=== PATIENT | female | born 1950 | race Hispanic/Latino ===

== ENCOUNTER 2018-10-16 08:27 | Emergency (ER) | payer OTHER ==
--- OUTSIDE RECORDS SUMMARY | 2018-10-16 08:29 | XMS REPORT | Continuity of Care Document ---
:1950 Author Organization Interface Problems Problem Status Onset Classification Date Comments Source Date Reported Simple Active Problem 05/21/2018 [facility] obesity Neuro Medications Medication Details Route Status Patient Ordering Order Source Instructions Provider Date Allergies, Adverse Reactions, Alerts Substance Category Reaction Severity Reaction Status Date Comments Source type Reported Immunizations Immunization Date Given Site Status Last Updated Comments Source Results Order Results Value Reference Date Interpretation Comments Source Name Range Vital Signs Vital Sign Value Date Comments Source BMI Calculated 33.36 04/02/2018 [facility] Neuro Weight 82.727 04/02/2018 [facility] Neuro Height 157.48 cm 04/02/2018 [facility] Neuro Heart Rate 80 04/02/2018 [facility] Neuro Systolic (mm Hg) 147 04/02/2018 [facility] Neuro Diastolic (mm Hg) 83 04/02/2018 [facility] Neuro Encounters Location Location Encounter Encounter Reason Attending ADM DC Status Source Details Type Number For Provider Date Date Visit Outpatient [id number] [place] 04/02 [facility] Outpatient [id number] [place] 04/02 04/03 [facility] Neurosurger Shelly /[facility] Phone [id number] 05/17 05/19 [facility] Neurosurger Message /2017 [facility] Phone [id number] 05/17 05/19 [facility] Neurosurger Message /2017 [facility] Outpatient [id number] [place] 06/12 [facility] Procedures Procedure Code Date Perfomer Comments Source
--- OUTSIDE RECORDS SUMMARY | 2018-10-16 08:29 | XMS REPORT ---
:1950 Author Organization eClinicalWorks Care Team Providers Name Role Phone Darrell Logan Provider Role Unavailable Allergies, Adverse Reactions, Alerts Substance Reaction Event Type N.K.D.A. Info Not Available Non Drug Allergy Problems Problem Type Condition Code Onset Dates Condition Status Problem Primary osteoarthritis of right M17.11 Active knee Problem Primary osteoarthritis of left knee M17.12 Active Assessment Primary osteoarthritis of right M17.11 Active knee Assessment Primary osteoarthritis of left knee M17.12 Active Assessment Pain, joint, knee, right M25.561 Active Assessment Pain, joint, knee, left M25.562 Active Medications Medication Code Code Instructions Start End Status Dosage System Date Date Methylprednisolone NDC 0 Oral Active 1 tab Jentadueto 2.5mg [facility] 10782315152 2.5mg Active not defined Nifedipine ER ND 59961826281 30 mg Oral Active not defined Tramadol HCl ND 19558905968 50 MG Orally Active 1 tablet every 6 hrs as needed Farxiga ND 46240453983 5mg By Mouth Active 1 Dailly Levothyroxine Sodium ND 51641099913 50 MCG Orally Active 1 tablet Once a day on an empty stomach in the morning Carvedilol ND 78031343879 25 MG Orally Active as directed Pioglitazone HCl [facility] 41810824273 30 MG Orally Active 1 tablet Once a day Results No Known Results Summary Purpose eClinicalWorks Submission
--- OUTSIDE RECORDS SUMMARY | 2018-10-16 08:29 | XMS REPORT ---
:1950 Author Organization eClinicalWorks Care Team Providers Name Role Phone Darrell Logan Provider Role Unavailable Allergies No Known Allergies Problems Problem Type Condition Code Onset Dates Condition Status Problem Primary osteoarthritis of right knee M17.11 Active Problem Primary osteoarthritis of left knee M17.12 Active Medications No Known Medications Results No Known Results Summary Purpose eClinicalWorks Submission
--- OUTSIDE RECORDS SUMMARY | 2018-10-16 08:29 | XMS REPORT | Summary of Care ---
:1950 Author Organization [facility] Neurosurgery [facility] Address [address] [place], [place] [address]oria [employer], [address] [place] [address]- Encounter HQ Encntr_alias(FIN) [id number] Date(s): 05/17/18 - 05/18/18 [facility] Neurosurgery [address] [facility], [address] [place], [place] [address] [phone] Vital Signs No data available for this section Problem List Condition Effective Dates Status Health Status Informant Simple obesity(Confirmed) Active Allergies, Adverse Reactions, Alerts No data available for this section Medications No data available for this section Results No data available for this section Immunizations No data available for this section Procedures No data available for this section Social History Social History Type Response Smoking Status Unknown if ever smoked; Exposure to Tobacco Smoke Unable to obtain; Cigarette Smoking Last 365 Days Unable to obtain; Reg Smoking Cessation Counseling No entered on: 04/02/18 Assessment and Plan No data available for this section
--- OUTSIDE RECORDS SUMMARY | 2018-10-16 08:29 | XMS REPORT | Summary of Care ---
:1950 Author Organization [facility] Neurosurgery [facility] Address [address] [place], [place] [address] [employer], [address] [place] [address]- Encounter HQ Encntr_alias(FIN) [id number] Date(s): 05/17/18 - 05/18/18 [facility] Neurosurgery [address] [facility], [address] [place], [place] [address] [phone] Vital Signs No data available for this [...]
--- NOTE | 2018-10-16 11:26 | EDPHYS ---
Physician Documentation [facility] Name: Katelin Curtis Age: 67 yrs Sex: Female : 1950 Arrival Date: 10/16/2018 Time: 08:30 Bed 14 Private MD: Darrell Logan ED Physician Teddy Rivera HPI: 10/16 08:49 This 67 yrs old Female presents to ER via Wheelchair with complaints of Knee rn Pain. 08:49 The patient presents with an injury, pain. The complaints affect the left knee. Onset: rn The symptoms/episode began/occurred yesterday. Modifying factors: The symptoms are alleviated by remaining still, the symptoms are aggravated by movement, weight bearing, bending knee. Severity of symptoms: At their worst the symptoms were moderate, in the emergency department the symptoms are unchanged. The patient has not experienced similar symptoms in the past. Reports walking, fell, hit left knee directly, no other injuries, hard to walk but ambulatory, + swelling and pain with movement. . Historical: - Allergies: 08:48 No Known Allergies; ss - PSHx: 09:02 None; ph - Immunization history:: Adult Immunizations up to date. - Social history:: Smoking status: Patient/guardian denies using tobacco. - Ebola Screening: : Patient denies exposure to infectious person Patient denies travel to an Ebola-affected area in the 21 days before illness onset. - Family history:: not pertinent. - Hospitalizations: : No recent hospitalization is reported. ROS: 08:49 Constitutional: Negative for fever, chills, and weight loss, Neck: Negative for injury, rn pain, and swelling, Cardiovascular: Negative for chest pain, palpitations, and edema, Respiratory: Negative for shortness of breath, cough, wheezing, and pleuritic chest pain, Abdomen/GI: Negative for abdominal pain, nausea, vomiting, diarrhea, and constipation, Back: Negative for injury and pain, MS/Extremity: + left knee injury and swelling Skin: Negative for injury, rash, and discoloration, Neuro: Negative for headache, weakness, numbness, tingling, and seizure. Exam: 08:49 Constitutional: This is a well developed, well nourished patient who is awake, alert, rn and in no acute distress. MS/ Extremity: Pulses equal, no cyanosis. Neurovascular intact. + swelling of left knee with painful ROM, + intact extensor mechanism, no open wound Neuro: Awake and alert, GCS 15, oriented to person, place, time, and situation. Cranial nerves II-XII grossly intact. Motor strength 5/5 in all extremities. Sensory grossly intact. Vital Signs: 08:48 BP 164 / 90; Pulse 94; Resp 16; Temp 97.7(TE); Pulse Ox 97% on R/A; Weight 86.18 kg; ss Height 5 ft. 2 in. (157.48 cm); Pain 10/10; 12:22 BP 154 / 82; Pulse 87; Resp 18; Temp 98.0; Pulse Ox 99% on R/A; ph 08:48 Body Mass Index 34.75 (86.18 kg, 157.48 cm) ss MDM: 08:45 Patient medically screened. rn 11:24 Differential diagnosis: closed fracture, contusion. Data reviewed: vital signs, nurses rn notes, radiologic studies, and as a result, I will discharge patient. Counseling: I had a detailed discussion with the patient and/or guardian regarding: the historical points, exam findings, and any diagnostic results supporting the discharge/admit diagnosis, radiology results, the need for outpatient follow up, to return to the emergency department if symptoms worsen or persist or if there are any questions or concerns that arise at home. Special discussion: I discussed with the patient/guardian in detail that at this point there is no indication for admission to the hospital. It is understood, however, that if the symptoms persist or worsen the patient needs to return immediately for re-evaluation. 10/16 08:48 Order name: XRAY Knee LEFT 3 view rn 10/16 12:21 Order name: RAD EDAR 10/16 11:24 Order name: Knee Immobilizer; Complete Time: 12:21 rn Administered Medications: No medications were administered Disposition: 10/16/18 11:25 Discharged to Home. Impression: Contusion of left knee. - Condition is Stable. - Discharge Instructions: Contusion, Knee Pain. - Prescriptions for Tylenol- Codeine #3 300-30 mg Oral Tablet - take 1 tablet by ORAL route every 6 hours As needed; 15 tablet. - Medication Reconciliation Form, Thank You Letter, Antibiotic Education, Prescription Opioid Use form. - Follow up: Darrell Logan MD; When: As needed; Reason: Recheck today's complaints, Re-evaluation by your physician. - Problem is new. - Symptoms have improved. Signatures: Dispatcher [employer] EDMS Teddy Rivera MD MD rn [facility] ServicesFatmata lui RN RN Salena Lawrence RN RN ph Corrections: (The following items were deleted from the chart) 12:22 11:25 10/16/2018 11:25 Discharged to Home. Impression: Contusion of left knee. ph Condition is Stable. Forms are Medication Reconciliation Form, Thank You Letter, Antibiotic Education, Prescription Opioid Use. Follow up: Dr. Darrell Logan; When: As needed; Reason: Recheck today's complaints, Re-evaluation by your physician. Problem is new. Symptoms have improved. rn
--- NOTE | 2018-10-16 11:26 | ER ---
Nurse's Notes [facility] Name: Katelin Curtis Age: 67 yrs Sex: Female : 1950 Arrival Date: 10/16/2018 Time: 08:30 Bed 14 Private MD: Darrell Logan Diagnosis: Contusion of left knee Presentation: 10/16 08:47 Presenting complaint: Patient states: L knee pain that began after falling from a ss standing position yesterday. Transition of care: patient was not received from another setting of care. Onset of symptoms was October 15, 2018. Risk Assessment: Do you want to hurt yourself or someone else? Patient reports no desire to harm self or others. Initial Sepsis Screen: Does the patient meet any 2 criteria? No. Patient's initial sepsis screen is negative. Does the patient have a suspected source of infection? No. Patient's initial sepsis screen is negative. Care prior to arrival: None. 08:47 Method Of Arrival: Wheelchair ss 08:47 Acuity: [place] 4 ss Historical: - Allergies: 08:48 No Known Allergies; ss - PSHx: 09:02 None; ph - Immunization history:: Adult Immunizations up to date. - Social history:: Smoking status: Patient/guardian denies using tobacco. - Ebola Screening: : Patient denies exposure to infectious person Patient denies travel to an Ebola-affected area in the 21 days before illness onset. - Family history:: not pertinent. - Hospitalizations: : No recent hospitalization is reported. Screenin:01 Abuse screen: Denies threats or abuse. Denies injuries from another. Nutritional ph screening: No deficits noted. Tuberculosis screening: No symptoms or risk factors identified. Fall Risk Fall in past 12 months (25 points). No secondary diagnosis (0 pts). No IV (0 pts). Ambulatory Aid- None/Bed Rest/Nurse Assist (0 pts). Gait- Normal/Bed Rest/Wheelchair (0 pts) Mental Status- Oriented to own ability (0 pts). Total Hinds Fall Scale indicates Low Risk Score (25-44 pts). Fall prevention measures have been instituted. Side Rails Up X 2 Family Present and informed to notify staff if they need to leave bedside As available Patient and Family Educated on Fall Prevention Program and strategies. Assessment: 09:00 General: Appears in no apparent distress. comfortable, obese, well groomed, Behavior is ph calm, cooperative, appropriate for age. Pain: Complains of pain in left knee. Neuro: Level of Consciousness is awake, alert, obeys commands, Oriented to person, place, time, situation. Cardiovascular: Capillary refill < 3 seconds in bilateral fingers Patient's skin is warm and dry. Respiratory: Airway is patent Respiratory effort is even, unlabored, Respiratory pattern is regular, symmetrical. GI: No signs and/or symptoms were reported involving the gastrointestinal system. Derm: Skin is intact, is healthy with good turgor, Skin is pink, warm \T\ dry. 09:22 Reassessment: Patient appears in no apparent distress at this time. Patient and/or ph family updated on plan of care and expected duration. Pain level reassessed. Patient is alert, oriented x 3, equal unlabored respirations, skin warm/dry/pink. Radiology at bedside for xray of knee. 10:28 Reassessment: Patient appears in no apparent distress at this time. Patient and/or ph family updated on plan of care and expected duration. Pain level reassessed. Patient is alert, oriented x 3, equal unlabored respirations, skin warm/dry/pink. Pt resting quietly, awaiting xray results, SO at bedside. Vital Signs: 08:48 BP 164 / 90; Pulse 94; Resp 16; Temp 97.7(TE); Pulse Ox 97% on R/A; Weight 86.18 kg; Height 5 ft. 2 in. (157.48 cm); Pain 10/10; 12:22 BP 154 / 82; Pulse 87; Resp 18; Temp 98.0; Pulse Ox 99% on R/A; ph 08:48 Body Mass Index 34.75 (86.18 kg, 157.48 cm) ED Course: 08:30 Patient arrived in ED. sb2 08:31 Darrell Logan MD is Private Physician. sb2 08:43 Salena Lawrence, CHRISTEN is Primary Nurse. ph 08:45 Teddy Rivera MD is Attending Physician. rn 08:47 Triage completed. ss 08:48 Arm band placed on right wrist. ss 09:01 Patient has correct armband on for positive identification. Bed in low position. Call ph light in reach. Side rails up X 1. Pulse ox on. NIBP on. 11:25 Darrell Logan MD is Referral Physician. rn 12:21 No provider procedures requiring assistance completed. Patient did not have IV access ph during this emergency room visit. Knee immobilizer applied on left knee. Administered Medications: No medications were administered Outcome: Discharge ordered by . rn 12: Discharged to home ambulatory, with family. ph 12: Condition: good 12: Discharge instructions given to patient, Instructed on discharge instructions, follow up and referral plans. Demonstrated understanding of instructions, follow-up care. 12:22 Patient left the ED. ph Signatures: Teddy Rivera MD MD rn Smirch, Shelby, RN RN Salena Zamora RN RN ph Lucrecia Ortega
--- NOTE | 2018-10-16 12:20 | RAD REPORT ---
EXAM DESCRIPTION: RAD - Knee Left 3 View - 10/16/2018 9:38 am CLINICAL HISTORY: Left knee pain status post fall FINDINGS: No fracture or dislocation is seen. The bones are osteoporotic. Marked osteoarthritis involves the medial compartment. If the patient continues have symptoms to suggest an occult fracture, ligamentous or meniscal injury MR would be recommended
== END 2018-10-16 12:22 | disposition home or self-care (01) ==
LOC: ER 08:27
DX: S80.02XA Contusion of left knee, initial encounter (principal); W19.XXXA Unspecified fall, initial encounter; M17.12 Unilateral primary osteoarthritis, left knee; M81.0 Age-related osteoporosis without current pathological fracture
CPT/HCPCS: 99283

== ENCOUNTER 2018-12-11 06:13 | Inpatient (IN) | payer OTHER ==
--- NOTE | 2018-12-05 10:33 | RAD REPORT ---
EXAM DESCRIPTION: RAD - Chest Pa And Lat (2 Views) - 12/05/2018 10:21 am CLINICAL HISTORY: preop Chest pain. COMPARISON: No comparisons FINDINGS: The lungs are clear. The heart is moderately enlarged. No displaced fractures. IMPRESSION: Moderate cardiomegaly.
[2018-12-05 11:06] LABS: Absolute Lymphocytes (CBC) 2.4 K/uL (0.7-4.9); Absolute Monocytes 0.6 K/uL (0.1-1.3); Absolute Neutrophil 6.3 K/uL (1.8-8.0); Basophils % 0.8 % (0-1.3); Eosinophils % 1.9 % (0-4.4); Hematocrit 36.2 % (36.0-45.0); Lymphocytes % 24.7 % (15.3-44.8); MPV 9.4 fL (7.6-11.3); Monocytes % 6.6 % (3.3-12.3); RBC Red Blood Cell Count 4.08 M/uL (3.86-4.86)
[2018-12-05 11:10] LABS: Protime INR 0.87
[2018-12-05 11:12] LABS: Potassium 4.2 mmol/L (3.5-5.1)
--- OUTSIDE RECORDS SUMMARY | 2018-12-11 06:21 | XMS REPORT ---
[...] 0 Oral Active 1 tab Jentadueto 2.5mg [facility] 81223776762 2.5mg Active not defined Nifedipine ER ND 27570321436 30 mg Oral Active not defined Tramadol HCl ND 05154929207 50 MG Orally Active 1 tablet every 6 hrs as needed Farxiga ND 11631938764 5mg By Mouth Active 1 Dailly Levothyroxine Sodium ND 08517183716 50 MCG Orally Active 1 tablet Once a day on an empty stomach in the morning Carvedilol ND 11265560971 25 MG Orally Active as directed Pioglitazone HCl [facility] 09737195959 30 MG Orally Active 1 tablet Once a day Results No Known Results Summary Purpose eClinicalWorks Submission
--- OUTSIDE RECORDS SUMMARY | 2018-12-11 06:21 | XMS REPORT ---
:1950 Author Organization eClinicalWorks Care Team Providers Name Role Phone Darrell Logan Provider Role Unavailable Allergies, Adverse Reactions, Alerts Substance Reaction Event Type N.K.D.A. Info Not Available Non Drug Allergy Problems Problem Type Condition Code Onset Dates Condition Status Assessment Contusion of left knee, initial S80.02XA Active encounter Problem Primary osteoarthritis of right M17.11 Active knee Problem Primary osteoarthritis of left M17.12 Active knee Assessment Primary osteoarthritis of right M17.11 Active knee Assessment Primary osteoarthritis of left M17.12 Active knee Assessment Pain, joint, knee, right M25.561 Active Assessment Pain, joint, knee, left M25.562 Active Medications Medication Code Code Instructions Start End Status Dosage System Date Date Pioglitazone HCl [facility] 99853889190 30 MG Orally Active 1 tablet Once a day Pravastatin ND 23503219882 10 MG Orally Active 1 tablet Sodium Once a day Jentadueto 2.5mg ND 00229395275 2.5mg Active not defined Tramadol HCl ND 52207467060 50 MG Orally Active 1 tablet as every 6 hrs needed Nifedipine ER ND 70471874849 30 mg Oral Active not defined Levothyroxine ND 24612548880 50 MCG Orally Active 1 tablet on Sodium Once a day an empty stomach in the morning Carvedilol ND 84793349193 25 MG Orally Active as directed Results Name Result Date Reference Range Unit Abnormality Flag MRI : Knee, right Summary Purpose eClinicalWorks Submission
--- OUTSIDE RECORDS SUMMARY | 2018-12-11 06:21 | XMS REPORT | Continuity of Care Document ---
:1950 Author Organization Interface Problems Problem Status Onset Classification Date Comments Source Date Reported Simple Active Problem 05/21/2018 [facility] Medications Medication Details Route Status Patient Ordering Order Source Instructions Provider Date Allergies, Adverse Reactions, Alerts Substance Category Reaction Severity Reaction Status Date Comments Source type Reported Immunizations Immunization Date Given Site Status Last Updated Comments Source Results Order Results Value Reference Date Interpretation Comments Source Name Range Vital Signs Vital Sign Value Date Comments Source BMI Calculated 33.36 04/02/2018 [facility] Weight 82.727 04/02/2018 [facility] Height 157.48 cm 04/02/2018 [facility] Heart Rate 80 04/02/2018 [facility] Systolic (mm Hg) 147 04/02/2018 [facility] Diastolic (mm Hg) 83 04/02/2018 [facility] Encounters Location Location Encounter Encounter Reason Attending ADM DC Status Source Details Type Number For Provider Date Date Visit Outpatient [id number] [place] 04/02 [facility] Out[facility] [id number] [place] 04/02 04/03 [facility] Neuro[facility] Shelly [facility] Phone [id number] 05/17 05/19 [facility] Neuro[facility] Message /2017 [facility] Phone [id number] 05/17 05/19 [facility] Message /2017 [facility] [id number] [place] 06/12 [facility] Procedures Procedure Code Date Perfomer Comments Source
[2018-12-11] MEDS ORDERED: NA CHLORIDE 0.9% 1,000 ML ONE ×2 (06:46→07:17)
[2018-12-11] MEDS ORDERED: LIDOCAINE 1% MPF 5 ML VIAL ONE (06:46)
[2018-12-11] MEDS ORDERED: CEFAZOLIN 2GM (PREMIX IV) 2 GM/50 ML BAG ONE (06:46)
[2018-12-11] MEDS ORDERED: LIDOCAINE 2% MPF 5 ML VIAL ONE (07:09)
[2018-12-11] MEDS ORDERED: FENTANYL CITR 250 MCG/5 ML ONE (07:09)
[2018-12-11] MEDS ORDERED: PROPOFOL 200 MG/20 ML VIAL IV ONE (07:09)
[2018-12-11] MEDS ORDERED: MIDAZOLAM HCL 2 MG/2 ML INJ ONE (07:09)
[2018-12-11] MEDS ORDERED: TRANEXAMIC ACID 1,000 MG in NA CHLORIDE 0.9% 50 ML IV SCH (07:15)
[2018-12-11] MEDS ORDERED: BUPIVACA 0.25%/EPI 0.0005% MDV 50 ML VIAL ONE (07:16)
[2018-12-11] MEDS ORDERED: DEXAMETHASONE 4 MG/ML VIAL ONE (07:19)
[2018-12-11] MEDS ORDERED: ROPLVACAINE HCL 20 ML ONE (07:19)
[2018-12-11] MEDS ORDERED: Phenylephrine HCl 10 MG/ML 1 ML VIAL ONE (08:00)
[2018-12-11] MEDS ORDERED: KETOROLAC 30 MG/ML INJ ONE (10:01)
[2018-12-11] MEDS ORDERED: DOCUSATE NA 100 MG CAP PO PRN (10:33)
[2018-12-11] MEDS ORDERED: ONDANSETRON 4 MG/2 ML VIAL IV PRN (10:33)
--- NOTE | 2018-12-11 10:33 | P.BOP ---
Preoperative diagnosis: right knee osteoarthritis Postoperative diagnosis: same Primary procedure: right total knee arthroplasty Casing Sewer: NONE,NONE Estimated blood loss: 20 cc Specimen: right knee bone remnants Findings: see dictation Anesthesia: General Complications: None Implants: 62.5 Biomet CR femur, 75 tibia, 12 mm CR E-poly, 31 patella Fluids & blood products: per anesthesia; 92 mins @ 300 mmHg Transferred to: Recovery Room Condition: Good
[2018-12-11] MEDS: FENTANYL CITR 100 MCG/2 ML ONE ×4 (11:05→11:23)
[2018-12-11 11:12] LABS: Hematocrit 35.2 % (36.0-45.0)
--- NOTE | 2018-12-11 11:20 | RAD REPORT ---
EXAM DESCRIPTION: RAD - Knee Right 2 View - 12/11/2018 11:05 am CLINICAL HISTORY: Post Op Right TKA COMPARISON: No comparisons FINDINGS: Right total knee arthroplasty is present. Skin sapna are present anteriorly. A small luisito unt of air is present in the joint space. No unexpected postoperative finding. IMPRESSION: Right TKA.
[2018-12-11 12:37] VITALS: BMI 35.1
[2018-12-11 16:12] LABS: Urine Appearance CLEAR; Urine Bilirubin NEGATIVE (NEG); Urine Blood 1+ (NEG); Urine Color YELLOW; Urine Glucose NEGATIVE (NEG); Urine Protein NEGATIVE (NEG); Urine Specific Gravity <=1.005 (1.005-1.030); Urine Urobilinogen 0.2 mg/dL (0.2-1.0)
[2018-12-11 16:19] LABS: Urine Microscopic Reflex ORDER UMIC
[2018-12-11] MEDS: MORPHINE 4 MG/ML SYR IV PRN (16:46)
[2018-12-11] MEDS ORDERED: CEFAZOLIN 2GM (PREMIX IV) 2 GM/50 ML BAG IV SCH (17:00)
[2018-12-11] MEDS: CEFAZOLIN/SWI 2gm 2 GM/20 ML SYR IVP SCH (17:09)
--- NOTE | 2018-12-11 17:38 | P.CNS ---
Date of Consult: 12/11/18 Reason for Consult: HTN and Diabetes Requesting Physician: Darrell Logan Primary Care Provider: Jessica Madrid Chief Complaint: Total Right Knee Surgery History of Present Illness: This is a 68-year-old female with significant past medical history of hypertension diabetes who is being admitted to the hospital for observation post for total right knee replacement secondary to osteoarthritis. Patient currently doing well no complaints to offer to tolerate the procedure well. Medicine team was consulted for medical management of chronic disease. Will follow along with orthopedics. Allergies No Known Drug Allergies Allergy (Verified 12/05/18 10:03) Unknown Home Medications: Carvedilol [Coreg] 25 mg PO BID 12/05/18 Levothyroxine [Synthroid] 50 mcg PO [id number] 12/05/18 Linagliptin/Metformin HCl [Jentadueto 2.5 mg-500 mg Tab] 1 each PO BID 12/05/18 Pioglitazone [Actos] 30 mg PO DAILY 12/05/18 Pravastatin Sodium 20 mg PO BEDTIME 12/05/18 Tramadol HCl [Ultram] 50 mg PO BID 12/05/18 Hydrocodone/Acetaminophen [Hydrocodone-Acetamin 7.5-325] 1 tab PO Q6HR PRN 12/11 Nifedipine Xl [Procardia Xl*] 1 tab PO DAILY 12/11/18 - Past Medical/Surgical History Diabetic: Yes -: Diabetes -: Hypertension -: Hypercholesterolemia -: Hypothyroidism - Family History Mother Medical History: Hypertension, Diabetes Notes: dad-stroke - Social History Alcohol use: No CD- Drugs: No Caffeine use: Yes Place of Residence: Home Review of Systems 10-point ROS is otherwise unremarkable Physical Examination Temp Pulse Resp BP Pulse Ox 97.6 F 85 18 143/65 H 98 12/11/18 11:40 12/11/18 11:40 12/11/18 11:40 12/11/18 11:40 12/11/18 11:40 General: Alert, In no apparent distress HEENT: Atraumatic, PERRLA, Mucous membr. moist/pink, EOMI, Sclerae nonicteric Neck: Supple, 2+ carotid pulse no bruit, No LAD, Without JVD or thyroid abnormality Respiratory: Clear to auscultation bilaterally, Normal air movement Cardiovascular: Regular rate/rhythm, Normal S1 S2 Gastrointestinal: Normal bowel sounds, No tenderness Musculoskeletal: Tenderness (Right Knee Cast in place) Integumentary: No rashes Neurological: Normal speech, Normal tone, Sensation intact, Normal affect Lymphatics: No axilla or inguinal lymphadenopathy Laboratory Data (last 24 hrs) 12/11/18 11:02: Hgb 11.4 L, Hct 35.2 L - Problems (1) Status post right knee replacement Current Visit: Yes Status: Acute Plan: Currently status post right knee total replacement secondary to osteoarthritis -orthopedic is primary on the case -will follow along for medical management (2) HTN (hypertension) Current Visit: Yes Status: Acute Plan: History of essential hypertension. -blood pressure controlled at this time -restarted home Meds Qualifiers: Hypertension type: essential hypertension Qualified Code(s): I10 - Essential (primary) hypertension (3) Diabetes Current Visit: Yes Status: Chronic Plan: Diabetes type 2 -will restart home medication at this time -blood sugar ACHS Qualifiers: Diabetes mellitus type: type 2 Diabetes mellitus [facility] insulin use: without long term care phlebotomist use Diabetes mellitus complication status: without complication Qualified Code(s): E11.9 - Type 2 diabetes mellitus without complications Critical Care: No
[2018-12-11 18:07] LABS: Urine Bacteria <20 /HPF (<20); Urine Culture Reflex Order NOT NEEDED; Urine RBC <5 /HPF (NONE SEEN)
[2018-12-11] MEDS: ATORVASTATIN 10 MG TAB PO SCH (20:29)
[2018-12-11] MEDS: CARVEDILOL 25 MG TAB PO SCH (20:29)
[2018-12-11] MEDS: METFORMIN HCL PO SCH (20:34)
[2018-12-11] MEDS: LINAGLIPTIN PO SCH (20:34)
[2018-12-11] MEDS: HYDROCODONE/APAP 7.5/325 MG TAB PO PRN (23:06)
--- NOTE | 2018-12-11 23:52 | OP ---
Date of Procedure: 12/11/2018 Surgeon: Darrell Logan MD Preoperative Diagnosis: Right knee osteoarthritis. Postoperative Diagnosis: Right knee osteoarthritis. Procedure Performed: Right total knee arthroplasty. Anesthesia: General, LMA. Fluids: Per Anesthesia record. Estimated Blood Loss: 20 cc. Complications: None. Implants: Biomet 62.5 CR femur, size 75 tibia, 12 mm CR poly, and size 31 patella. Indication For Procedure: Katelin is a 68-year-old female, who presents to my clinic with signs, sym ptoms, and x-ray findings consistent with severe osteoarthritis of her right knee valgus malalignment . The patient had failed conservative treatment measures including NSAIDs and corticosteroid injecti on. I discussed with the patient at length risks and benefits associated with operative and nonopera tive treatment as well as postoperative rehabilitation. She expressed understanding and elected to p roceed with operative treatment. Description Of Procedure: After informed consent was obtained, the patient was identified in the pre operative holding area. The right lower extremity was marked. The patient was taken back to the PAC U, where she underwent a femoral nerve block performed by Anesthesia. She was then taken back to the operating room, transferred to the operative table in supine fashion, and placed under general anest hesia. The right lower extremity was then prepped and draped in usual sterile fashion. A time-out w as initiated. The correct patient and procedure were confirmed and identified. The patient had rece ived preoperative prophylactic antibiotics. Right lower extremity was exsanguinated using an Esmarch and the tourniquet was inflated to 300 mmHg. Approximately, a 2-cm longitudinal incision was made o emre the anterior aspect of the knee and centered over the patella. Dissection was taken down to the extensor mechanism. A medial parapatellar arthrotomy was performed. Patella was inverted. A fat pa d was excised as well as the medial and lateral menisci. Patella was everted. The patient had signi ficant degenerative changes to the undersurface of patella with a large osteophyte superiorly. The o steophyte was removed using Herron as well as osteophytes throughout the patella. Lateral release wa s performed. There was significant wear and it was elected to proceed with resurfacing of the patell a. Knee retractors were placed and attention was now taken to the distal femur. Synovium was then e xcised just proximal to the anterior aspect of the distal femur and using MRI of her knee. The guide was placed on the distal femur and once in proper position, the pins were placed. The gu jessica was then removed followed by placement of the distal femoral cutting block over the pins on the a nterior aspect of the distal femur. Maxime wing was then used to confirm proper cut and the distal fe mur was cut. Distal femoral cut was made. After that was performed, Biomet pin sets on the distal e nd of the femur were found again and the anterior and posterior femoral cutting block was placed on t he distal aspect of the femur. Again, Maxime wing was used to confirm proper cut and anterior-posteri or cuts were made as well as anterior, posterior, and chamfer cuts without complication. Bone remnan ts were removed and put on the back table to send for pathology. Next, attention was taken to the pr oximal tibia. Given her chronic valgus malalignment, her IT band was the lateral capsule. The cutting guide that had been made from the MRI was then placed on the proximal tibia and pins we re placed with alignment humble to ensure proper position on both coronal and sagittal planes. After th e pins were placed, the cutting block was placed on the proximal tibia. Maxime wing was then used to confirm proper depth of the cuts. Cuts were made. Osteotome was used to make a cut out around the P CL to protect it. The cut was made and the tibial articular surface was removed as well as any remai kaitlynn meniscus. A 10 mm sizing block was then placed and there was good fit in both extension and fle xion. The trial components were placed using a 62.5 CR femur and a 75 tibia and 10-mm poly. There a ppeared to be some laxity with a 10-mm poly and a size 12 mm was placed and there was overall good st ability in both flexion and extension with the 12-mm poly. The tibia was marked. The femur was dril led. Next, attention was taken to the patella. Size 31 was selected. Again, osteophytes were remov ed and the patella was plain to subchondral bone removing the cartilage. Button was placed and there was good overall fit and stability of the patella within the groove. The tibia was punch ed. The trial implants were then removed. The wound was then irrigated thoroughly with normal salin e using a pulse lavage. Local anesthetic was then injected in the posterior capsule and in the perio steum using a 0.25% Marcaine with epinephrine. The cement was then prepared on the back table, place d on the tibia first, followed by placement of the tibial component followed by placement of cement o n the femur and placement of the femoral component. Excess cement was removed using a Whitlash elevator and the knee was held out in extension and attention was then used to put the cement on the patella. Patellar button was placed and the cement was hardened. The knee was then ranged. There was good overall full range of motion and good stability in flexion, extension. A 12 mm final poly was placed and locked into position. The knee was then again irrigated with normal saline. The tourniquet was let down. Hemostasis was achieved with Bovie electrocautery. The extensor mechanism was approximat ed using #1 Vicryl in interrupted and running fashion followed by 0 Vicryl with superficial fascia an d 2-0 Vicryl with subcutaneous tissue and the skin was approximated using sapna. Sterile dressing was applied. The patient was awakened and transferred to PACU in stable condition. Postoperative Plan: Therapy will be consulted for mobilization. Internal Medicine will be consulted for medical management. The patient has a history of poorly-controlled hypertension, diabetes, hype rlipidemia, and hypothyroidism. She will likely stay at least 2 midnights for blood pressure managem ent as well as medical management, and she will likely be discharged to an inpatient rehabilitation c enter as she lives at home alone. CV/MODL Voice ID: [id number] Report ID: [id number]
[2018-12-12] MEDS ORDERED: TEMAZEPAM 15 MG CAP PO PRN (00:25)
[2018-12-12] MEDS: CEFAZOLIN/SWI 2gm 2 GM/20 ML SYR IVP SCH ×2 (01:41→08:08)
[2018-12-12] MEDS: MORPHINE 4 MG/ML SYR IV PRN ×3 (03:47→15:15)
[2018-12-12] MEDS: LEVOTHYROXINE SOD 0.05 MG TABLET PO SCH (05:39)
[2018-12-12] MEDS: ENOXAPARIN 30 MG/0.3 ML SQ SCH ×2 (05:40→17:12)
[2018-12-12] MEDS: HYDROCODONE/APAP 7.5/325 MG TAB PO PRN ×3 (05:44→17:44)
[2018-12-12 06:03] LABS: Absolute Lymphocytes (CBC) 1.5 K/uL (0.7-4.9); Absolute Monocytes 1.6 K/uL (0.1-1.3); Absolute Neutrophil 9.5 K/uL (1.8-8.0); Basophils % 0.4 % (0-1.3); Eosinophils % 0.1 % (0-4.4); MPV 9.1 fL (7.6-11.3); Monocytes % 12.4 % (3.3-12.3); RBC Red Blood Cell Count 3.88 M/uL (3.86-4.86)
[2018-12-12 06:15] LABS: Potassium 3.7 mmol/L (3.5-5.1)
[2018-12-12] MEDS: CELECOXIB 100 MG CAPSULE PO SCH (08:07)
[2018-12-12] MEDS: PIOGLITAZONE 15 MG TAB PO SCH (08:08)
[2018-12-12] MEDS: CARVEDILOL 25 MG TAB PO SCH ×2 (08:08→21:15)
[2018-12-12] MEDS: LINAGLIPTIN PO SCH ×2 (08:09→21:00)
[2018-12-12] MEDS: METFORMIN HCL PO SCH ×2 (08:09→21:00)
--- NOTE | 2018-12-12 11:31 | P.PN ---
Subjective Date of Service: 12/12/18 Primary Care Provider: Jessica Madrid Chief Complaint: Total Right Knee Surgery Subjective: Ambulating, Working w/ PT reports some pain overnight as block wore off Physical Examination - Vital Signs Temperature: 98.9 F Blood Pressure: 180/79 Pulse: 96 Respirations: 16 Pulse Ox (%): 96 - Physical Exam General: Alert, In no apparent distress Musculoskeletal: Other (RLE: dressing c/d/i; +EHL/FHL/GSC/TA; sensation grossly intact over dorsal and plantar foor) - Studies Laboratory Data (last 24 hrs) 12/12/18 05:45: Sodium 141, Potassium 3.7, BUN 16, Creatinine 0.74, Glucose 161 H 12/12/18 05:45: WBC 12.6 H D, Hgb 11.2 L, Hct 34.0 L, Plt Count 155 D Assessment And Plan - Plan Katelin is a 68 yo female s/p R TKA POD#1 -H/H stable -pain control: will add oxycontin BID scheduled; continue with PRN [place] and morphine -lovenox for DVT prophylaxis -d/c ewa today -likely d/c to inpatient rehab at [facility] in [place] tomorrow
[2018-12-12] MEDS ORDERED: GLUCAGON 1 MG/VIAL IM PRN (12:15)
[2018-12-12] MEDS ORDERED: D50W 25 GM/50 ML SYRINGE IV PRN (12:15)
[2018-12-12] MEDS: INSULIN -REGULAR HUMAN 50 UNIT/0.5 ML ML SQ SCH ×3 (12:38→21:00)
--- NOTE | 2018-12-12 15:26 | P.PN ---
Subjective Date of Service: 12/12/18 Primary Care Provider: Jessica Madrid Chief Complaint: Total Right Knee Surgery Patient seen and examined at bedside with RN. Chart reviewed. Currently patient is status post right total knee replacement. [facility]waiting [facility] inpatient [facility] Review of Systems 10-point ROS is otherwise unremarkable Physical Examination - Vital Signs Temperature: 98.4 F Blood Pressure: 160/61 Pulse: 84 Respirations: 16 Pulse Ox (%): 96 - Physical Exam General: Alert, In no apparent distress HEENT: Atraumatic, PERRLA, EOMI Neck: Supple, JVD not distended Respiratory: Clear to auscultation bilaterally, Normal air movement Cardiovascular: Regular rate/rhythm, Normal S1 S2 Gastrointestinal: Normal bowel sounds, No tenderness Musculoskeletal: No tenderness Integumentary: No rashes Neurological: Normal speech, Normal tone, Normal affect Lymphatics: No axilla or inguinal lymphadenopathy - Studies Laboratory Data (last 24 hrs) 12/12/18 05:45: Sodium 141, Potassium 3.7, BUN 16, Creatinine 0.74, Glucose 161 H 12/12/18 05:45: WBC 12.6 H D, Hgb 11.2 L, Hct 34.0 L, Plt Count 155 D Medications List Reviewed: Yes Assessment And Plan - Current Problems (Diagnosis) (1) Status post right knee replacement Current Visit: Yes Status: Acute Plan: Currently status post right knee total replacement secondary to osteoarthritis -orthopedic is primary on the case -will follow along for medical management (2) HTN (hypertension) Current Visit: Yes Status: Acute Plan: History of essential hypertension. -blood pressure elevated at this time. Most likely secondary to pain. Goal for blood pressure is 150/80. -restarted home Meds and changed pain medication per ortho Chacho. Will continue to monitor closely Qualifiers: Hypertension type: essential hypertension Qualified Code(s): I10 - Essential (primary) hypertension (3) Diabetes Current Visit: Yes Status: Chronic Plan: Diabetes type 2 -will restart home medication at this time -blood sugar ACHS Qualifiers: Diabetes mellitus type: type 2 Diabetes mellitus environmental services associate insulin use: without retirement use Diabetes mellitus complication status: without complication Qualified Code(s): E11.9 - Type 2 diabetes mellitus without complications Discharge Plan: Other Plan to discharge in: 48 Hours - Code Status/Comfort Care Code Status Assessed: Yes Critical Care: No
[2018-12-12] MEDS ORDERED: MORPHINE 2 MG/ML SYR IV PRN (15:47)
[2018-12-12] MEDS: ATORVASTATIN 10 MG TAB PO SCH (21:15)
[2018-12-12] MEDS: OXYCODONE *CR* 10 MG TAB PO SCH (21:16)
[2018-12-13 05:35] LABS: Absolute Lymphocytes (CBC) 1.7 K/uL (0.7-4.9); Absolute Neutrophil 6.3 K/uL (1.8-8.0); Basophils % 0.4 % (0-1.3); Eosinophils % 0.4 % (0-4.4); Hematocrit 28.9 % (36.0-45.0); Lymphocytes % 19.2 % (15.3-44.8); MPV 9.4 fL (7.6-11.3); Monocytes % 10.5 % (3.3-12.3); RBC Red Blood Cell Count 3.31 M/uL (3.86-4.86)
[2018-12-13 05:40] LABS: BUN Blood Urea Nitrogen 13 mg/dL (7-18); Bicarbonate 27 mmol/L (21-32); Glucose Level 123 mg/dL (74-106); Potassium 3.8 mmol/L (3.5-5.1); Sodium Level 141 mmol/L (136-145)
[2018-12-13] MEDS: HYDROCODONE/APAP 7.5/325 MG TAB PO PRN (05:40)
[2018-12-13] MEDS: ENOXAPARIN 30 MG/0.3 ML SQ SCH (05:50)
[2018-12-13] MEDS: LEVOTHYROXINE SOD 0.05 MG TABLET PO SCH (05:50)
[2018-12-13] MEDS: INSULIN -REGULAR HUMAN 50 UNIT/0.5 ML ML SQ SCH ×2 (07:30→11:30)
--- NOTE | 2018-12-13 08:01 | P.DS ---
Admission Date: 12/11/18 Discharge Date: 12/13/18 Primary Care Provider: Jessica Madrid Disposition: TRANSFER TO INPATIENT REHAB Discharge Condition: GOOD Reason for Admission: Total Right Knee Surgery Consultations: Dr. Minoo Eckert, Hospitalist Procedures: Right Total Knee Arthroplasty on 12/11/2018 Brief History of Present Illness: Katelin is a 68 yo female admitted postop to the hospital s/p R total knee arthroplasty with history of DM, HTN, hypothyroidism and hyperlipidemia. Hospital Course: Katelin underwent the procedure without complication and was admitted to the floor in stable condition. Dr. Eckert was consulted for medical management. While on the floor her vitals remained stable and patient progressed well with physical therapy. She was on lovenox for DVT prophylaxis. She has no help at home and will require discharge to inpatient rehabilitation. She was discharged on 12/13/2018 in stable condition. She will followup in Dr. Logan's clinic on 12/26 for staple removal and reevaluation. Vital Signs/Physical Exam: Temp Pulse Resp BP Pulse Ox 99.5 F 89 20 141/65 H 94 12/13/18 04:00 12/13/18 04:00 12/13/18 04:00 12/13/18 04:00 12/13/18 04:00 Laboratory Data at Discharge: WBC 9.0 K/uL (4.3-10.9) D 12/13/18 04:21 Hgb 9.7 g/dL (12.0-15.0) L 12/13/18 04:21 Hct 28.9 % (36.0-45.0) L 12/13/18 04:21 Plt Count 130 K/uL (152-406) L 12/13/18 04:21 PT 10.3 SECONDS (9.5-12.5) 12/05/18 10:15 INR 0.87 12/05/18 10:15 APTT 28.7 SECONDS (24.3-36.9) 12/05/18 10:15 Sodium 141 mmol/L (136-145) 12/13/18 04:21 Potassium 3.8 mmol/L (3.5-5.1) 12/13/18 04:21 BUN 13 mg/dL (7-18) 12/13/18 04:21 Creatinine 0.62 mg/dL (0.55-1.3) 12/13/18 04:21 Glucose 123 mg/dL (74-106) H 12/13/18 04:21 Home Medications: Carvedilol [Coreg*] 25 mg PO BID 12/05/18 Levothyroxine [Synthroid*] 50 mcg PO [id number] 12/05/18 Linagliptin/Metformin HCl [Jentadueto 2.5 mg-500 mg Tab] 1 each PO BID 12/05/18 Pioglitazone [Actos*] 30 mg PO DAILY 12/05/18 Pravastatin Sodium 20 mg PO BEDTIME 12/05/18 Hydrocodone/Acetaminophen [Hydrocodone-Acetamin 7.5-325] 1 tab PO Q6HR PRN 12/11 Nifedipine Xl [Procardia Xl*] 1 tab PO DAILY 12/11/18 Enoxaparin Sodium [Lovenox 30 MG INJ*] 30 mg SQ Q12HR 6AM AND 6PM syr 12/13/18 Hydrocodone 7.5/APAP 325 [[place] 7.5/325 mg*] 1 tab PO Q4H PRN tab 12/13/18 Patient Discharge Instructions: keep dressing clean and dry; CONTRERAS hose to bilateral lower extremity; WBAT RLE; change dressing to right knee on with new aquacell bandage and clean incision with Alcohol swabs. Lovenox for DVT prophylaxis until 12/25/18 Diet: ADA Activity: Weight bearing as tolerated Followup: Darrell Logan MD [ACTIVE - CAN ADMIT] - 12/26/18
--- NOTE | 2018-12-13 08:04 | P.PN ---
Subjective Date of Service: 12/13/18 Primary Care Provider: Jessica Madrid Chief Complaint: Total Right Knee Surgery Subjective: Ambulating, Working w/ PT, Doing well Pain improving Physical Examination - Vital Signs Temperature: 99.5 F Blood Pressure: 141/65 Pulse: 89 Respirations: 20 Pulse Ox (%): 94 - Physical Exam General: Alert, In no apparent distress Musculoskeletal: Other (RLE: incision c/d/i; minimal swelling; NVI distally) - Studies Laboratory Data (last 24 hrs) 12/13/18 04:21: Sodium 141, Potassium 3.8, BUN 13, Creatinine 0.62, Glucose 123 H 12/13/18 04:21: WBC 9.0 D, Hgb 9.7 L, Hct 28.9 L, Plt Count 130 L Medications List Reviewed: Yes Assessment And Plan - Plan Katelin is a 68 yo female s/p R TKA POD#2 -acute expected postoperative blood loss anemia; drop likely secondary to start of Lovenox; incision clean and dry; no signs of active bleeding -pain controlled -lovenox for DVT prophylaxis -likely d/c to inpatient rehab at [facility] in [facility]
[2018-12-13] MEDS: METFORMIN HCL PO SCH (08:45)
[2018-12-13] MEDS: LINAGLIPTIN PO SCH (08:45)
[2018-12-13] MEDS: CARVEDILOL 25 MG TAB PO SCH (08:46)
[2018-12-13] MEDS: CELECOXIB 100 MG CAPSULE PO SCH (08:46)
[2018-12-13] MEDS: PIOGLITAZONE 15 MG TAB PO SCH (08:46)
[2018-12-13] MEDS: OXYCODONE *CR* 10 MG TAB PO SCH (08:47)
[2018-12-13 09:56] VITALS: O2SAT 98
--- NOTE | 2018-12-13 11:14 | P.PN ---
Subjective Date of Service: 12/13/18 Primary Care Provider: Jessica Madrid Chief Complaint: Total Right Knee Surgery Patient seen and examined at bedside with RN. Chart reviewed. Currently patient is status post right total knee replacement. Awaiting placement to [facility] inpatient service Review of Systems 10-point ROS is otherwise unremarkable Physical Examination - Vital Signs Temperature: 99.5 F Blood Pressure: 177/72 Pulse: 86 Respirations: 20 Pulse Ox (%): 94 - Physical Exam General: Alert, In no apparent distress HEENT: Atraumatic, PERRLA, EOMI Neck: Supple, JVD not distended Respiratory: Clear to auscultation bilaterally, Normal air movement Cardiovascular: Regular rate/rhythm, Normal S1 S2 Gastrointestinal: Normal bowel sounds, No tenderness Musculoskeletal: No tenderness Integumentary: No rashes Neurological: Normal speech, Normal tone, Normal affect Lymphatics: No axilla or inguinal lymphadenopathy - Studies Laboratory Data (last 24 hrs) 12/13/18 04:21: Sodium 141, Potassium 3.8, BUN 13, Creatinine 0.62, Glucose 123 H 12/13/18 04:21: WBC 9.0 D, Hgb 9.7 L, Hct 28.9 L, Plt Count 130 L Medications List Reviewed: Yes Assessment And Plan - Current Problems (Diagnosis) (1) Status post right knee replacement Current Visit: Yes Status: Acute Plan: Currently status post right knee total replacement secondary to osteoarthritis -orthopedic is primary on the case -will follow along for medical management (2) HTN (hypertension) Current Visit: Yes Status: Acute Plan: History of essential hypertension. -blood pressure elevated at this time. Most likely secondary to pain. Goal for blood pressure is 150/80. -restarted home Meds and changed pain medication per ortho Chacho. Will continue to monitor closely Qualifiers: Hypertension type: essential hypertension Qualified Code(s): I10 - Essential (primary) hypertension (3) Diabetes Current Visit: Yes Status: Chronic Plan: Diabetes type 2 -will restart home medication at this time -blood sugar ACHS Qualifiers: Diabetes mellitus type: type 2 Diabetes mellitus long chain beamer insulin use: without long chain beamer use Diabetes mellitus complication status: without complication Qualified Code(s): E11.9 - Type 2 diabetes mellitus without complications Discharge Plan: Home - Code Status/Comfort Care Code Status Assessed: Yes Critical Care: No
[2018-12-13 13:22] VITALS: BP 134/61; TEMP 97.2
== END 2018-12-13 14:41 | DRG 470 ==
LOC: OR 06:13 → 2ND 10:34
PROVIDERS: ADMIT Orthopaedic Surgery Sports Medicine; ATTEND Orthopaedic Surgery Sports Medicine
PROC: 0SRC069 Replacement of Right Knee Joint with Oxidized Zirconium on Polyethylene Synthetic Substitute, Cemented, Open Approach (ICD-10-PCS; principal; 2018-12-11 07:30)
DX: M17.11 Unilateral primary osteoarthritis, right knee (principal); M06.9 Rheumatoid arthritis, unspecified; E78.00 Pure hypercholesterolemia, unspecified; I10 Essential (primary) hypertension; M17.12 Unilateral primary osteoarthritis, left knee; E11.9 Type 2 diabetes mellitus without complications; E03.9 Hypothyroidism, unspecified; E78.5 Hyperlipidemia, unspecified
CPT/HCPCS: 36415; 71046; 80048; 81003; 81015; 82962; 83036; 85014; 85018; 85025; 85610; 85730; 88304; 88305; 88311; 97110; 97116; 97139; 97163; 97530; J0690; J1650; J2250; J2370; J2704; J2795; J3010; J7030

== ENCOUNTER 2022-07-12 06:04 | Observation (INO) | payer OTHER ==
[2022-07-07 09:51] LABS: Absolute Lymphocytes (CBC) 2.5 K/uL (0.7-4.9); Hematocrit 36.9 % (36.0-45.0); Lymphocytes % 30.9 % (15.3-44.8); MCV 87.1 fL (80-100); MPV 8.4 fL (7.6-11.3); RBC Red Blood Cell Count 4.23 M/uL (3.86-4.86)
[2022-07-07 10:01] LABS: Protime INR 1.02
[2022-07-07 10:05] LABS: Potassium 4.1 mmol/L (3.5-5.1)
[2022-07-07 10:16] LABS: SARS-CoV-2 Antigen Rapid Res Negative (Negative)
--- NOTE | 2022-07-07 10:43 | RAD REPORT ---
EXAM DESCRIPTION: Gavino Pereira (2 Views)07/07/2022 9:41 am CLINICAL HISTORY: Preop for knee arthroplasty COMPARISON: 2019 FINDINGS: The lungs appear clear of acute infiltrate. The heart is probably mildly enlarged IMPRESSION: No acute abnormalities displayed
--- NOTE | 2022-07-08 15:21 | EKG ---
Test Date: 2022-07-07 Test Time: 09:21:09 Tribunal Member: CARI MEASUREMENT RESULTS: Intervals: Rate: 97 CA: 162 QRSD: 82 QT: 350 QTc: 444 [place]: P: 41 CA: 162 QRS: 32 T: 36 INTERPRETIVE STATEMENTS: Normal sinus rhythm Normal ECG No previous ECG available for comparison Electronically Signed On 07-08-22 15:18:49 CDT by Dariel Hay
[2022-07-12] MEDS ORDERED: FENTANYL CITR 100 MCG/2 ML ONE (06:20)
[2022-07-12] MEDS ORDERED: LIDOCAINE 1% MPF 5 ML VIAL ONE (06:20)
[2022-07-12] MEDS ORDERED: MIDAZOLAM HCL 2 MG/2 ML INJ ONE (06:20)
[2022-07-12] MEDS ORDERED: dexAMETHasone 10 MG/ML VIAL ONE ×2 (06:20→06:37)
[2022-07-12] MEDS ORDERED: BUPIVACAINE 0.25% PF 10 ML VIAL ONE (06:20)
[2022-07-12] MEDS ORDERED: HYDROMORPHONE HCL 1 MG/ML INJ ONE ×2 (06:21→12:05)
[2022-07-12] MEDS ORDERED: EPINEPHRINE/PF 1 MG/ML AMP ONE (06:21)
[2022-07-12] MEDS ORDERED: CELECOXIB 100 MG CAPSULE ONE (06:24)
[2022-07-12] MEDS ORDERED: ACETAMINOPHEN 500 MG TAB ONE (06:24)
[2022-07-12] MEDS ORDERED: GABAPENTIN 100 MG CAP ONE (06:24)
[2022-07-12] MEDS ORDERED: Ringers Lactate 1,000 ML IV ONE (06:24)
[2022-07-12] MEDS ORDERED: CEFAZOLIN 2 GM IN 0.9% NACL 2 GM/100 ML BAG ONE (06:25)
[2022-07-12] MEDS ORDERED: propofoL 200 MG/20 ML VIAL IV ONE (06:37)
[2022-07-12] MEDS ORDERED: KETOROLAC 30 MG/ML INJ ONE (06:37)
[2022-07-12] MEDS ORDERED: LIDOCAINE 2% MPF 5 ML VIAL ONE (06:38)
[2022-07-12] MEDS ORDERED: KETAMINE HCL 500 MG/5 ML VIAL ONE (06:38)
[2022-07-12] MEDS ORDERED: ONDANSETRON 4 MG/2 ML VIAL ONE (06:38)
[2022-07-12] MEDS ORDERED: NA CHLORIDE 0.9% 1,000 ML ONE ×2 (06:52→11:14)
[2022-07-12] MEDS ORDERED: TRANEXAMIC ACID 1,000 MG/10 ML VIAL IV ONE (07:27)
[2022-07-12] MEDS ORDERED: LABETALOL 20 MG/4ML SYRINGE IV ONE (07:58)
[2022-07-12] MEDS ORDERED: CEFAZOLIN SODIUM 2 GM/VIAL IVPB ONE (08:11)
[2022-07-12] MEDS ORDERED: NS 0.9% VIAL 10 ML ONE (08:43)
[2022-07-12] MEDS ORDERED: Phenylephrine HCl 10 MG/ML 1 ML VIAL ONE (08:43)
--- NOTE | 2022-07-12 10:59 | P.BOP ---
Preoperative diagnosis: left knee osteoarthritis Postoperative diagnosis: same Primary procedure: left total knee arthroplasty [place]: NONE,NONE Estimated blood loss: 40 cc Specimen: left knee bone remnants Findings: see dictation Anesthesia: General Complications: None Implants: Biomet Vonnie Persona 6 STD femur, F tibia, 29x8 patella, 10 CR poly Fluids & blood products: per anesthesia record; TT: 75 mins @ 300 mmHg Transferred to: Recovery Room Condition: Good
[2022-07-12] MEDS ORDERED: DOCUSATE NA 100 MG CAP PO PRN (11:02)
[2022-07-12] MEDS ORDERED: ACETAMINOPHEN 325 MG TABLET PO PRN (11:02)
[2022-07-12] MEDS ORDERED: ONDANSETRON 4 MG/2 ML VIAL IV PRN (11:02)
[2022-07-12] MEDS ORDERED: TRAMADOL HCL 50 MG TAB PO PRN (11:08)
[2022-07-12] MEDS: HYDROMORPHONE HCL 1 MG/ML INJ ONE ×2 (11:35→11:47)
--- OUTSIDE RECORDS SUMMARY | 2022-07-12 11:36 | XMS REPORT | Continuity of Care Document ---
:1950 Author Organization [facility] t Address [address] [place] [address] Care Team Providers Name Role Phone Matt Eckert Attending Clinician Unavailable Britni Madrid Attending Clinician Unavailable Kip Bravo Attending Clinician Problems Condition Condition Condition Status Onset Resolution Last Treating Co mments Source Name Details Category Date Date Treatment Clinician Date Simple Simple Problem Active 2018-12-30 [facility] oria obesity obesity 12:53:51 [facility]dis[facility] 12[facility]30/2018 [facility] Allergies, Adverse Reactions, Alerts This patient has no known allergies or adverse reactions. Social History Smoking Status Start Date Stop Date Source Social History [facility] Medications Ordered Filled Start Stop Current Ordering Indication Dosage Frequency Signature Comments Components Source Medication Medication Date Date Medication? Clinician (SIG) Name Name Tramadol Tramadol 2018-0 Yes Darrell 1 tablet Common HCl HCl 3-13 Logan as needed Spirit 00:00: - [facility] 00 [facility] Carvedilol Carvedilol Yes Darrell as Common Logan directed [facility] Pravastatin Pravastatin Yes Darrell 1 tablet Common Sodium Sodium Logan [facility] Pioglitazon Pioglitazon Yes Darrell 1 tablet Common e HCl e HCl Logan [facility] Nifedipine Nifedipine Yes Darrell not Common ER ER Logan defined [facility] Jentadueto Jentadueto Yes Darrell not Common 2.5mg 2.5mg Logan defined [facility] Levothyroxi Levothyroxi Yes Darrell 1 tablet Common ne Sodium ne Sodium Logan on an Spir it empty - [facility] stomach in [facility] Vital Signs Vital Name Observation Time Observation Value Comments Source Systolic (mm Hg) 2018-04-02 18:34:00 Armando Felix Diastolic (mm Hg) 2018-04-02 18:34:00 [facility] emeterio Felix BMI Calculated 2018-04-02 18:34:00 July Nayak Weight 2018-04-02 18:34:[address] [facility] Height 2018-04-02 18:34:[address] [facility] Heart Rate 2018-04-02 18:34:[address] [facility] Procedures This patient has no known procedures. Encounters Start End Encounter Admission Attending Care Care Encounter Source Date/Time Date/Time Type Type Clinicians Facility Department ID 2022-06-30 Outpatient Eckert, [facility]MLC [facility] [id number] Common 08:41:00 Matt [facility] 2022-05-02 Outpatient Eckert, [facility] [id number] Common 09:31:00 Matt [facility] 2022-04-25 Outpatient Eckert, STLMLC [facility] [id number] Common 12:57:00 Matt [facility] 2022-04-06 Outpatient Eckert, STLMLC [facility] [id number] Common 13:54:00 Matt [facility] 2022-03-30 Outpatient Eckert, STLMLC [facility] [id number] Common 13:13:08 Matt [facility] 2022-03-17 Outpatient Julius, STLMLC [facility] [id number] Common 13:27:01 Britni [facility] 2022-03-08 Outpatient Julius, STLMLC [facility] [id number] Common 12:13:00 Britni [facility] 2021-12-07 Outpatient Julius, STLMLC [facility] [id number] Common 13:11:51 Britni [id number] [facility] 2021-12-07 Outpatient Julius, STLMLC [facility] [id number] Common 13:02:17 Britni [id number] [facility] 2022-07-10 2022-07-10 ambulatory STLMLC [facility] [id number] Common 00:00:00 00:00:00 [facility] 2022-06-29 2022-06-29 ambulatory STLMLC [facility] [id number] Common 00:00:00 00:00:00 [facility] 2022-05-25 2022-05-25 ambulatory STLMLC [facility] [id number] Common 00:00:00 00:00:00 [facility] 2022-05-24 2022-05-24 ambulatory STLMLC [facility] [id number] Common 00:00:00 00:00:00 [facility] 2022-05-02 2022-05-02 ambulatory STLMLC ST[facility] [id number] Common 00:00:00 00:00:00 [facility] 2022-03-30 2022-03-30 ambulatory STLMLC [facility] [id number] Common 00:00:00 00:00:00 [facility] 2022-03-22 2022-03-22 ambulatory STLMLC ST[facility] [id number] Common 00:00:00 00:00:00 [facility] 2022-03-17 2022-03-17 ambulatory STLMLC [facility] [id number] Common 00:00:00 00:00:00 [facility] 2022-03-09 2022-03-09 ambulatory STLMLC ST[facility] [id number] Common 00:00:00 00:00:00 [facility] 2021-08-01 2021-08-01 Outpatient STLMLC [facility] [id number] Common 00:00:00 00:00:00 [facility] 2021-06-30 2021-06-30 Outpatient STLMLC ST[facility] [id number] Common 00:00:00 00:00:00 [facility] 2021-05-19 2021-05-19 Outpatient STLMLC [facility] [id number] Common 00:00:00 00:00:00 [facility] 2021-04-19 2021-04-19 Outpatient STLMLC [facility] [id number] Common 00:00:00 00:00:00 [facility] 2021-03-23 2021-03-23 Outpatient STLMLC [facility] [id number] Common 00:00:00 00:00:00 [facility] 2019-06-03 2019-06-03 [facility] [id number] Common 09:30:00 09:30:00 [facility] 2019-03-13 2019-03-13 [facility] [id number] Common 10:30:00 10:30:00 t [facility] 2019-01-30 2019-01-30 [facility] [id number] Common 09:00:00 09:00:00 t Bone Bone and Spiri t and Joint [facility] 2019-01-28 2019-01-28 [facility] [id number] Common 10:25:00 10:25:00 t [facility] Bone [facility] Sp[facility] t and Joint [facility] 2019-01-22 2019-01-22 [facility] [id number] Common 10:51:00 10:51:00 t Bone Bone and Spiri t and Joint [facility] 2018-12-26 2018-12-26 [facility] [id number] Common 10:16:00 10:16:00 t Bone Bone and Spiri t and Joint [facility] 2018-12-26 2018-12-26 [facility] [id number] Common 09:30:00 09:30:00 t Bone Bone and Spiri t and Joint [facility] 2018-12-09 2018-12-09 [facility] [id number] Common 09:00:00 09:00:00 t Bone Bone and Spiri t and Joint [facility] 2018-12-05 2018-12-05 [facility] [id number] Common 14:56:00 14:56:00 t Bone Bone and Spiri t and Joint [facility] 2018-12-05 2018-12-05 [facility] [id number] Common 13:34:00 13:34:00 t Bone Bone and Spiri t and Joint [facility] 2018-10-28 2018-10-28 [facility] [id number] Common 12:11:00 12:11:00 t [facility] Bone and Spiri t and Joint [facility] 2018-10-25 2018-10-25 [facility] [id number] Common 08:00:00 08:00:00 t Bone Bone and Spiri t and Joint [facility] 2018-08-07 2018-08-07 [facility] [id number] Common 11:24:00 11:24:00 t Bone Bone and Spiri t and Joint [facility] 2018-07-04 2018-07-04 [facility] [id number] Common 08:30:00 08:30:00 t Bone Bone and Spiri t and Joint [facility] 2018-06-12 2018-06-13 Outpatient [facility] [id number] Memoria 14:15:00 04:59:59 r Neurosurger 01 l y Viki Ricks josé manuel 2018-06-12 2018-06-12 Outpatient Shelly, MHMISCHER MHMISCHER [id number] 09:15:00 23:59:59 Kip 01 Patricia 2018-06-12 2018-06-12 Outpatient MHIE MHIE [id number] Memoria 09:15:00 09:15:00 01 jazlyn Felix 2018-05-17 2018-05-19 Phone nullFlavo MNA [id number] Memoria 15:02:00 04:59:59 Message r Neurosurger 02 l y Viki Ricks josé manuel 2018-05-17 2018-05-19 Phone nullFlavo MNA [id number] Memoria 14:59:00 04:59:59 Message r Neurosurger 01 l y Viki Ricsk josé manuel 2018-05-17 2018-05-18 Outpatient MHMISCHER MHMISCHER [id number] 10:02:00 23:59:59 02 2018-05-17 2018-05-18 Outpatient MHMISCHER MHMISCHER [id number] 09:59:00 23:59:59 2018-04-02 2018-04-03 Outpatient nullFlavo MNA [id number] Memoria 16:30:00 04:59:59 r Neurosurger 00 l Leidy georges 2018-04-02 2018-04-02 Outpatient Shelly, MHMISCHER MHMISCHER [id number] 11:30:00 23:59:59 Kip Patricia 2018-04-02 2018-04-02 Outpatient MHIE MHIE [id number] Memoria 11:30:00 11:30:00 jazlyn RicksIsidro Results Test Description Test Time Test Comments Results Result Comments Source TSH, THIRD GENERATION 2022-02-08 06:42:31 Test Item Value Reference Range Interpretation Comme nts TSH, THIRD GENERATION (test code = 2821) 2.630 UIU/ML 0.400-4.100 LIPID [id number] 05:34:01 Test Item Value Reference Range Interpretation Comments CHOLESTEROL (test 170 MG/DL <200 code = 2210) TRIGLYCERIDES (test 137 MG/DL <150 code = 2232) HDL CHOLESTEROL (test 46 MG/DL >39 code = 2220) CALC LDL CHOL (test 100 MG/DL <100 H NOTE: C ALCULATED LDL code = 2237) IS BASED ON MECHE-LALA METHOD WHICHINCLUDES ADJUSTABLE TRIGLYCERIDE:VL DL CHOLESTEROL RAT IO.THIS FACTOR VARIES B Y MEASURED TRIGLY CERIDE AND NON-HDLCHOL ESTEROL CONCENTRATIONS WITH INCREASED CALCU LATED LDL SEENIN HIGH ER TRIGLYCERIDE OR LOWER NON-HDL SPECIME NS. FOR MOREINFORMATION , SEE CLIENT ANNOUNCE MENT AT [email or web address] RISK RATIO LDL/HDL 2.17 RATIO <3.22 (test code = 2238) COMPREHENSIVE METABOLIC [id number] 05:34:01 Test Item Value Reference Range Interpretation Comments GLUCOSE (test code = 120 MG/DL 70-99 H 2216) BUN (test code = 19 MG/DL 8-23 2207) CREATININE (test 0.60 MG/DL 0.60-1.30 code = 221) eGFR (2020 CKD-EPI) 95 ML/MIN/1.73 >60 (test code = 29337) CALC BUN/CREAT (test 32 RATIO 6-28 H code = 2235) SODIUM (test code = 139 MEQ/L 954-329 8790) POTASSIUM (test code 4.3 MEQ/L 3.5-5.4 = 2227) CHLORIDE (test code 102 MEQ/L 95-107 = 2214) CARBON DIOXIDE (test 21 MEQ/L 19-31 code = 2206) CALCIUM (test code = 9.2 MG/DL 8.5-10.5 2208) PROTEIN, TOTAL (test 7.0 G/DL 6.1-8.3 code = 2229) ALBUMIN (test code = 4.2 G/DL 3.5-5.2 2200) CALC GLOBULIN (test 2.8 G/DL 1.9-3.7 code = 2240) CALC A/G RATIO (test 1.5 RATIO 1.0-2.6 code = 2234) BILIRUBIN, TOTAL 0.3 MG/DL See_Comment [Automated message] (test code = 2207) The syste m which generated this result transmit brady reference range : <=1.2. The refe rence range was not u sed to interpret th is result as normal/abnormal . ALKALINE PHOSPHATASE 70 U/L 40-142 (test code = 2204) AST (test code = 40 U/L 9-40 8) ALT (test code = 46 U/L 5-40 H 2219) HIV 1/2 4TH GEN, RFLX [id number] 05:21:08 Test Item Value Reference Range Interpretation Comments HIV 1/2 4TH GEN, RFLX CONF (test NON-REACTIVE NON-REACTIVE code = 3514) HEPATITIS PANEL, [id number] 05:21:08 Test Item Value Reference Range Interpretation Comments HEPATITIS A IgM (test NON-REACTIVE NON-REACTIVE code = 25999) HEPATITIS B CORE IgM NON-REACTIVE NON-REACTIVE (test code = 4644) HEPATITIS B SURF AG NON-REACTIVE NON-REACTIVE (test code = 2739) HEPATITIS C ANTIBODY NON-REACTIVE NON-REACTIVE (test code = 4675) INTERPRETATION (NOTE) Hepatitis A HEPATITIS A: (test serology shows no code = 2552) evidence of acu te hepatitis A. INTERPRETATION (NOTE) Hepatitis B HEPATITIS B: (test serology shows no code = 49416) evidence of ac [place] hepatitis B and no indication of exposure to hepatitis B vir us in the previous si xto eight months. INTERPRETATION (NOTE) Hepatitis C HEPATITIS C: (test serology shows no code = 20346) evidence of ex posure to hepatitisC v irus at this time. I t can take up to 12 m onths after exposure tothe hepatitis C vir us for antibodies to become detectab le in the blood in ce rtain patients. UNLES S OTHERWISE INDIC ATED, ALL TESTING PERFORMED [facility], [place]. [address] [place] [address], [place] [id number] [place] [address] DIRECTOR: ENZO PRATT M.D. CLIA NUMBER [id number] [place] [id number] HEMOGLOBIN [id number] 04:05:55 Test Item Value Reference Range Interpretation Comments HEMOGLOBIN A1c (test code = 31177) 6.3 % 4.2-5.6 H CBC W/AUTO DIFF WITH [id number] 02:23:53 Test Item Value Reference Range Interpretation Comments WBC (test code = 10.3 K/UL 3.5-11.0 1001) RBC (test code = 4.27 M/UL 3.80-5.40 1002) HEMOGLOBIN (test code 12.3 G/DL 11.5-15.5 = 1003) HEMATOCRIT (test code 37.4 % 34.0-45.0 = 1004) MCV (test code = 87.6 fL 80.0-99.0 1005) MCH (test code = 28.8 PG 25.0-33.0 1006) MCHC (test code = 32.9 G/DL 31.0-36.0 1007) RDW (test code = 13.3 % 11.5-15.0 1038) NEUTROPHILS (test 65.1 % code = 1008) LYMPHOCYTES (test 25.8 % code = 1010) MONOCYTES (test code 6.6 % = 1011) EOSINOPHILS (test 1.4 % code = 1012) BASOPHILS (test code 0.6 % = 1013) IMMATURE GRANULOCYTES 0.5 % (test code = 1036) NUCLEATED RBCS (test 0.0 /100 WBC'S See_Comment [Aut omated code = 1065) message] The sy stem which generated this result transmitted reference range : 0.0. The refere nce range was not u sed to interpret th is result as normal/abnormal . PLATELET COUNT (test 199 K/UL 130-400 code = 1015) ABSOLUTE NEUTROPHILS 6.70 K/UL 1.50-7.50 (test code = 1066) ABSOLUTE LYMPHOCYTES 2.65 K/UL 1.00-4.00 (test code = 1067) ABSOLUTE MONOCYTES 0.68 K/UL 0.20-1.00 (test code = 1068) ABSOLUTE EOSINOPHILS 0.14 K/UL 0.00-0.50 (test code = 1040) ABSOLUTE BASOPHILS 0.06 K/UL 0.00-0.20 (test code = 1069) ABS IMMATURE 0.05 K/UL 0.00-0.10 GRANULOCYTES (test code = 1020) ABS NUCLEATED RBCS 0.00 K/UL 0.00-0.11 (test code = 29459)
[2022-07-12 11:51] LABS: Hematocrit 35.6 % (36.0-45.0)
--- NOTE | 2022-07-12 12:30 | RAD REPORT ---
EXAM DESCRIPTION: RAD - Knee Left 2 View - 07/12/2022 11:44 am CLINICAL HISTORY: Post Op COMPARISON: Knee Left 3 View dated 10/16/2018 FINDINGS: Left total knee arthroplasty has been performed. Skin sapna are noted. Small amount of f luid and air in the joint space. No unexpected immediate postoperative finding.
[2022-07-12] MEDS ORDERED: MORPHINE 2 MG/ML SYR IV PRN (12:34)
[2022-07-12] MEDS ORDERED: ACETAMINOPHEN 500 MG TAB PO PRN (12:43)
--- NOTE | 2022-07-12 12:49 | P.CNS ---
Date of Consult: 07/12/22 Reason for Consult: Medical management. Requesting Physician: Darrell Logan History of Present Illness: Patient is a 71-year-old female with a past medical history significant for hypothyroidism, DM 2, hypertension, HLD, osteoarthritis who presents with complaint of left knee pain. Patient reported that she has arthritis in multiple joints in her body. Patient has been having left knee pain for a couple of months. Patient has attempted conservative treatments, steroid shots, pain medications but has not experienced any improvement in symptoms. Patient reported that she was unable to bear weight on her left leg due to pain in the knee. Patient has been following up with her orthopedic surgeon and patient agreed with orthopedic surgeon to perform a left knee replacement. Patient also reports chronic back pain rated as 8/10 in severity and described as aching quality. Patient currently denies any pain in her left knee or any other signs and symptoms. Symptoms are aggravated or relieved by nothing. Patient currently resting in bed surrounded by family. Allergies No Known Drug Allergies Allergy (Verified 07/07/22 09:05) Unknown Home Medications: Levothyroxine [Synthroid*] 50 mcg PO [id number] 12/05/18 Atorvastatin Calcium [Lipitor] 20 mg PO BEDTIME 07/07/22 Tramadol HCl [Ultram] 50 mg PO TID 07/07/22 Hydrocodone/Acetaminophen [Hydrocodone-Acetamin 7.5-325] 1 tab PO Q6H PRN 07/12/22 - Past Medical/Surgical History Diabetic: Yes -: Diabetes -: Hypertension -: Hypercholesterolemia -: Hypothyroidism -: right knee replacement -: injections in back - Family History Mother Medical History: Hypertension, Diabetes Notes: dad-stroke - Social History Smoking Status: Never smoker Alcohol use: No CD- Drugs: No Caffeine use: Yes Place of Residence: Home Review of Systems General: Unremarkable Eyes: Unremarkable ENT: Unremarkable Respiratory: Unremarkable Cardiovascular: Unremarkable Gastrointestinal: Unremarkable Genitourinary: Unremarkable Musculoskeletal: Back Pain, Other (Left knee pain ) Integumentary: Unremarkable Neurological: Unremarkable Lymphatics: Unremarkable Physical Examination Temp Pulse Resp BP Pulse Ox 97.2 F 86 16 122/51 L 07/12/22 11:48 07/12/22 11:48 07/12/22 11:48 07/12/22 11:48 General: Alert, Oriented x3, Cooperative HEENT: Atraumatic, Normocephalic, PERRLA Neck: Supple, 2+ carotid pulse no bruit, JVD not distended Respiratory: Clear to auscultation bilaterally, Normal air movement Cardiovascular: No edema, Normal pulses, Regular rate/rhythm Capillary refill: <2 Seconds Gastrointestinal: Normal bowel sounds Musculoskeletal: Other (Left Knee tenderness ) Integumentary: No rashes, No breakdown, No significant lesion Neurological: Normal affect Lymphatics: No axilla or inguinal lymphadenopathy Laboratory Data (last 24 hrs) 07/12/22 11:37: Hgb 11.4 L, Hct 35.6 L Conclusions/Impression: -- Left knee pain. Status post left total knee arthroplasty. Orthopedic surgeon on board. Patient on CPM machine at time of assessment. PT eval and treat. Further management per orthopedic surgeon. --Osteoarthritis\chronic pain syndrome. We will manage pain with current pain medication regimen. --HLD. Continue statin --DM2. BS monitoring with sliding scale insulin. --Hypertension. Poorly controlled. Continue home medication and labetalol as needed --Hypothyroidism. Continue Synthroid. --CKD 2. Stable. We will continue to monitor renal functions. -- Class I obesity. Likely secondary to excess calories intake. Patient counse led on weight reduction, diet and exercise therapy. -- DVT prophylaxis with SCDs. Continue chemoprophylaxis tomorrow. Physician Review: Patient Assessed, Agree with Above Assessment and Plan Critical Care: No
[2022-07-12 14:43] VITALS: BMI 33.5
[2022-07-12] MEDS ORDERED: D50W 25 GM/50 ML SYRINGE IV PRN (14:49)
[2022-07-12] MEDS ORDERED: GLUCAGON 1 MG/VIAL IM PRN (14:49)
[2022-07-12] MEDS ORDERED: DEXTROSE 10%-WATER 125 ML IV PRN (15:20)
[2022-07-12] MEDS: CEFAZOLIN SODIUM 2 GM in NA CHLORIDE 0.9% 100 ML IVPB SCH (16:49)
[2022-07-12] MEDS: INSULIN -REGULAR HUMAN 50 UNIT/0.5 ML ML SQ SCH ×2 (16:49→20:57)
--- NOTE | 2022-07-12 17:03 | P.OP ---
Preoperative diagnosis: left knee osteoarthritis Postoperative diagnosis: same Primary procedure: left total knee arthroplasty Anesthesia: general LMA Estimated blood loss: 40 cc Specimen: left knee bone remnants Findings: see dictation Operative Technique: Indication For Procedure: Katelin is an 71 year-old female presenting to my clinic with signs, symptoms and x-ray findings consistent with a severe left knee osteoarthritis. I discussed with the patient at length risks and benefits associated with operative and nonoperative treatment. She had failed conservative treatment measures and had significant difficulties with ADLs secondary to her pain. We discussed operative treatment and elected to proceed with left total knee arthroplasty. She expressed understanding and elected to proceed with operative treatment. Description Of Procedure: After informed consent was obtained, the patient was identified in the preoperative holding area. The left lower extremity was marked. The patient was then taken to the PACU where he underwent a left lower extremity adductor canal block performed by Anesthesia. She was then taken to the operating room, transferred to the operating table in supine fashion, and placed under general anesthesia. Her left lower extremity was then prepped and draped in usual sterile fashion. A time-out was initiated. The correct patient and procedure were confirmed and identified. The patient did receive her preoperative prophylactic antibiotics. The left lower extremity was then exsanguinated and tourniquet was inflated to 300 mmHg. Approximately 15 cm longitudinal incision was made centered over the anterior aspect of the left knee. Dissection was then taken to the extensor mechanism and a medial parapatellar arthrotomy was performed. The patella was everted and dislocated laterally and the knee was flexed in the fat pad. There were multiple osteophytes and heterotopic bone superior to the patella that were removed. Medial lateral meniscus and ACL were all excised exposing the distal femur. Excess hypertrophic synovium was also excised within the suprapatellar pouch. The patient had an MRI of the left knee preoperatively for surgical planning and creation of cutting blocks. The cutting block was then placed over the distal femur and pins were then placed. The distal femoral cutting block was then placed over the pins. Knee joint was then used to ensure proper depth cut and the distal femur was then cut. The chamfer cutting guide was then placed over the distal end of the femur. Anterior, posterior cuts as well as anterior and posterior chamfer cuts were then made again confirming proper depth of the cut using an Maxime wing. Excess bone remnants were then sent to pathology for further evaluation. Next, attention was taken to the proximal tibia. A tibial jig and tibial cutting block was then placed on proximal aspect of the right tibia and locked into position. Pins were then placed and alignment guide was then used to confirm proper alignment of the cut and then coronal and sagittal planes. Once this was confirmed, the cutting jig was placed over the pins and the proximal tibia was cut. Sizing trays were then selected and size 10 mm spacer was used and there was good overall balance in flexion and extension. Next, the trial implants were then placed using the size 6 standard CR femur and a size F tibia with a 10 mm poly. There was overall good range of motion and good stability Trial implants were then removed. The wound was then irrigated thoroughly with normal saline and the knee was then injected with 30 cc of 0.5% Marcaine both in the posterior capsule and mediallateral gutters as well as quadriceps tendon and periosteum. The tibia was then punched. The femur was drilled. The cement was then prepared on the back table. Cement was then placed first on the tibial surface followed by size F tibia. Excess cement was removed with [place] elevators. Size 6 standard CR femur was then placed on the distal femur after cement was placed on the distal femur. Excess cement was then removed and a size 10 mm trial poly was then placed. The knee was held in extension as the cement hardened. Undersurface of the patella was prepared debriding osteophytes using rongeurs as well as osteophytes had been debrided off the proximal tibia with rongeurs and osteotomes to aid with the medial tightness. Cement was placed on the undersurface of the patella after it was cut and a size 29 patella was placed. Once the cement was hardened, the knee was ranged, there was good overall stability both in flexion, extension and as well as stability with varus and valgus stresses. Trial poly was then removed and a size 10 mm CR poly was then placed and locked into position. The knee was then ranged again. There was good overall range of motion both for flexion and extension with good stability. The wound was then irrigated again thoroughly with normal saline using pulse lavage. Tourniquet was let down. Hemostasis was achieved using Bovie electrocautery. Extensor mechanism was then approximated using a #1 Vicryl bothin interrupted and running fashion. The fascia was then approximated using 0 Vicryl. Subcutaneous tissue was approximated with a 2-0 Vicryl. Skin was approximated using sapna. Sterile dressings were applied. The patient was awakened and transferred back in stable condition Complications: None Implants: Biomet Vonnie Persona, 6 STD CR femur, F tibia, 29 patella, 10 CR poly Fluids & blood products: per anesthesia record; TT: 75 mins @ 300 mmHg Transferred to: Recovery Room Condition: Good
[2022-07-12] MEDS ORDERED: LABETALOL 20 MG/4ML SYRINGE IV PRN (18:27)
[2022-07-12] MEDS ORDERED: ATORVASTATIN 20 MG TAB PO SCH (21:00)
[2022-07-12] MEDS: HYDROCODONE/APAP 7.5/325 MG TAB PO PRN (21:03)
[2022-07-13] MEDS: CEFAZOLIN SODIUM 2 GM in NA CHLORIDE 0.9% 100 ML IVPB SCH ×2 (01:11→09:12)
[2022-07-13 05:30] LABS: Absolute Lymphocytes (CBC) 1.1 K/uL (0.7-4.9); Hematocrit 33.8 % (36.0-45.0); Lymphocytes % 7.2 % (15.3-44.8); MCV 88.5 fL (80-100); MPV 8.9 fL (7.6-11.3); RBC Red Blood Cell Count 3.83 M/uL (3.86-4.86)
[2022-07-13] MEDS: ENOXAPARIN 30 MG/0.3 ML SQ SCH ×2 (05:35→09:13)
[2022-07-13 05:46] LABS: Potassium 4.5 mmol/L (3.5-5.1)
[2022-07-13] MEDS ORDERED: LEVOTHYROXINE SOD 0.05 MG TABLET PO SCH (06:00)
--- NOTE | 2022-07-13 06:41 | P.PN ---
Date of Service: 07/13/22 Subjective: doing well; feels better compared to when she got right knee done pain manageable no nausea/vomiting, no shortness of breath, +flatus, +voiding ROS: 10 point ROS as noted above, otherwise negative Physical Exam: Gen: NAD, AOx3 CV: regular rate & rhythm, no edema Pulm: non-labored respirations, clear bilaterally Abd: soft, non-tender, non-distended MSK: L knee with tristin bandage in place, minimal tenderness on lateral aspect of knee Neuro: normal speech, normal affect, moves all extremities vitals reviewed Problem List Left knee osteoarthritis s/p Left total knee arthroplasty HLD NIDDM2 HTN hypothyroidism CKD2 doing well post-operatively worked with PT, ambulated in [place] pain manageable voiding, +flatus vitals stable continue home medications DVT prophylaxis, pain medication as per ortho Code: full Dispo: likely rehab today Time Spent Managing Pts Care (In Minutes): 235
[2022-07-13] MEDS: HYDROCODONE/APAP 7.5/325 MG TAB PO PRN (08:27)
[2022-07-13 08:45] VITALS: O2SAT 98
[2022-07-13] MEDS ORDERED: CELECOXIB 100 MG CAPSULE PO SCH (09:00)
[2022-07-13] MEDS: INSULIN -REGULAR HUMAN 50 UNIT/0.5 ML ML SQ SCH ×2 (09:12→12:02)
[2022-07-13 12:50] VITALS: BP 136/66; TEMP 98.4
== END 2022-07-13 15:24 ==
LOC: OR 06:04 → 4TH 11:02
PROVIDERS: ADMIT Orthopaedic Surgery Sports Medicine; ATTEND Orthopaedic Surgery Sports Medicine
PROC: 0SRD069 Replacement of Left Knee Joint with Oxidized Zirconium on Polyethylene Synthetic Substitute, Cemented, Open Approach (ICD-10-PCS; principal; 2022-07-12 08:00)
DX: M17.12 Unilateral primary osteoarthritis, left knee (principal); I12.9 Hypertensive chronic kidney disease with stage 1 through stage 4 chronic kidney disease, or unspecified chronic kidney disease; E11.22 Type 2 diabetes mellitus with diabetic chronic kidney disease; N18.2 Chronic kidney disease, stage 2 (mild); E78.5 Hyperlipidemia, unspecified; E03.9 Hypothyroidism, unspecified; M54.9 Dorsalgia, unspecified; G89.4 Chronic pain syndrome; E78.00 Pure hypercholesterolemia, unspecified; E66.9 Obesity, unspecified; Z68.33 Body mass index [BMI] 33.0-33.9, adult; Z71.3 Dietary counseling and surveillance; Z71.82 Exercise counseling; Z96.651 Presence of right artificial knee joint; Z79.899 Other long term (current) drug therapy; Z20.822 Contact with and (suspected) exposure to COVID-19; Z83.3 Family history of diabetes mellitus; Z82.3 Family history of stroke; Z82.49 Family history of ischemic heart disease and other diseases of the circulatory system
CPT/HCPCS: 36415; 71046; 80048; 80061; 82947; 83036; 85014; 85018; 85025; 85610; 85730; 87811; 88305; 88311; 93005; 94010; 97110; 97116; 97139; 97161; 97530; C1776; G0378; G0379; J0171; J0690; J1100; J1170; J1650; J1815; J2250; J2370; J2405; J2704; J3010; J7030; J7120

== ENCOUNTER 2025-02-10 14:41 | Emergency (ER) | payer OTHER ==
[2025-02-10 18:06] LABS: Absolute Basophils 0.1 K/uL (0-0.5); Absolute Eosinophils 0.2 K/uL (0-0.5); Absolute Lymphocytes (CBC) 2.9 K/uL (0.7-4.9); Absolute Monocytes 0.9 K/uL (0.1-1.3); Absolute Neutrophil 8.4 K/uL (1.8-8.0); Basophils % 1.1 % (0-1.3); Eosinophils % 1.7 % (0-4.4); Hematocrit 34.9 % (36.0-45.0); Hemoglobin 11.8 g/dL (12.0-15.0); Lymphocytes % 23.4 % (15.3-44.8); MCHC 33.8 g/dL (32.0-36.0); MCV 88.9 fL (80-100); MPV 8.6 fL (7.6-11.3); Neutrophils % 66.8 % (41.7-73.7); Nucleated Red Blood Cells % 0.1 % (0-0); Platelets 202 thou/uL (152-406); RBC Red Blood Cell Count 3.92 M/uL (3.86-4.86); Red Cell Distribution Width 15.9 % (12.1-15.2)
[2025-02-10] MEDS ORDERED: NA CHLORIDE 0.9% 1,000 ML ONE (18:09)
[2025-02-10] MEDS ORDERED: ONDANSETRON 4 MG/2 ML VIAL ONE (18:09)
--- NOTE | 2025-02-10 18:10 | RAD REPORT ---
EXAMINATION: Abdomen Pelvis W Contrast CLINICAL INDICATION: Female, 74 years old.ABD PAIN TECHNIQUE: CT abdomen and pelvis was performed, after the administration of IV contrast, as per [facility] protocol. Axial, sagittal and coronal reconstructions were obtained. One or more of the following dose reduction techniques were used: Automated exposure control, adjustment of the mA and/o r kV according to patient size, and/or iterative reconstruction. Unless otherwise specified, incidental findings do not require dedicated imaging follow-up. [id number]. COMPARISON: No prior exam. FINDINGS: LOWER CHEST: No acute process identified.No significant pericardial effusion. Mild coronary artery ca lcifications. Aortic valve calcifications. UPPER GI: No significant abnormality. LIVER: No significant focal abnormality. GALLBLADDER/BILE DUCTS: Cholelithiasis without CT evidence of acute cholecystitis.? PANCREAS: No mass, ductal dilation, or delaney-pancreatic fluid. SPLEEN: Unremarkable. ADRENALS: No adrenal masses. KIDNEYS AND URETERS: No hydronephrosis.No suspicious renal mass. ABDOMINAL AORTA AND OTHER VESSELS: Severe atherosclerotic changes. No aortic aneurysm. Moderate to se rebel stenoses at the branch vessels including the celiac trunk, SMA, and renal arteries. PERITONEUM: No abnormal free fluid. No free air. LYMPH NODES: No pathologic lymphadenopathy. ABDOMINAL WALL: Unremarkable SMALL BOWEL/COLON: Small bowel has normal course and caliber. No colonic wall thickening or pericolon ic inflammatory changes.Normal appendix. URINARY BLADDER: Underdistended but grossly unremarkable. REPRODUCTIVE ORGANS: 3.6 cm right adnexal cystic lesion. Recommendation: US f/u promptly MUSCULOSKELETAL: Grade 1 anterolisthesis of L4 and L5. ADDITIONAL FINDINGS: None. IMPRESSION: No acute findings within the abdomen or pelvis. Additional findings as noted above. Right adnexal cyst. Nonemergent pelvis ultrasound is recommended.
[2025-02-10 18:23] LABS: Albumin 3.4 g/dL (3.4-5.0); Albumin/Globulin Ratio 0.9 (1.1-1.8); Anion Gap 9.3 mEq/L (5.0-15.0); Bilirubin Total 0.6 mg/dL (0.2-1.0); Globulin 3.9 g/dL (2.3-3.5); Potassium 4.3 mEq/L (3.5-5.1); Protein, Total 7.3 g/dL (6.4-8.2)
[2025-02-10 18:25] LABS: Specific Gravity 1.016 (1.005-1.030); Urine Bilirubin NEGATIVE (Negative); Urine Blood Negative (Negative); Urine Clarity Clear (Clear); Urine Color Light-Yellow (Yellow); Urine Glucose NEGATIVE (Negative); Urine Ketones NEGATIVE (Negative); Urine Microscopic Reflex YN NO UMIC; Urine Nitrite NEGATIVE (Negative); Urine Protein NEGATIVE (Negative); Urine Urobilinogen Normal (Normal)
--- NOTE | 2025-02-10 18:46 | EDPHYS ---
Physician Documentation [facility] Name: Katelin Curtis Age: 74 yrs Sex: Female : 1950 Arrival Date: 02/10/2025 Time: 14:41 Bed 19 Private MD: ED Physician Liban Franklin HPI: 02/10 17:48 This 74 yrs old Female presents to ER via Ambulatory with complaints of kb Vomiting, General Weakness. 17:48 Patient is a 74-year-old female who presents for nausea, vomiting, diarrhea and kb generalized weakness that started 4 days ago. Denies fever or abdominal pain.. Historical: - Allergies: 15:37 No Known Allergies; cm10 - PMHx: 15:37 Diabetes mellitus; Hypertensive disorder; Hypercholesterolemia; cm10 - PSHx: 15:37 None; cm10 - Immunization history:: Adult Immunizations up to date. - Infectious Disease History:: Denies. - Social history:: Smoking status: Patient denies any tobacco usage or history of. ROS: 17:48 Constitutional: As per HPI kb Exam: 17:48 Constitutional: This is a well developed, well nourished patient who is awake, alert, kb and in no acute distress. Head/Face: Normocephalic, atraumatic. ENT: Moist Mucous membranes Cardiovascular: Regular rate Respiratory: Respirations even and unlabored. No increased work of breathing. Talking in full sentences Skin: Warm, dry with normal turgor. Normal color. MS/ Extremity: Pulses equal, no cyanosis. Neurovascular intact. Full, normal range of motion. Neuro: Awake and alert, GCS 15, oriented to person, place, time, and situation. 17:48 Abdomen/GI: Inspection: abdomen appears normal, Bowel sounds: normal, Palpation: soft, in all quadrants, mild abdominal tenderness, in the right lower quadrant, Vital Signs: 15:36 BP 160 / 71; Pulse 89; Resp 15; Temp 97.6(O); Pulse Ox 99% on R/A; Weight 81.65 kg; cm10 Height 5 ft. 2 in. ; Pain 0/10; 18:20 BP 154 / 64; Pulse 78; Resp 18; Temp 98.2(O); Pulse Ox 100% on R/A; ld1 19:18 BP 154 / 81; Pulse 81; Resp 18; Temp 98.2; Pulse Ox 100% ; Pain 0/10; bm8 15:36 Body Mass Index 32.92 (81.65 kg, 157.48 cm) cm10 15:36 Pain Scale: Adult cm10 19:18 Pain Scale: Adult bm8 Ryan Coma Score: 19:18 Eye Response: spontaneous(4). Motor Response: obeys commands(6). Verbal Response: bm8 oriented(5). Total: 15. MDM: 15:38 Medical Screening Exam initiated kb 18:45 Differential diagnosis: Nonspecific abd pain, appendicitis, viral gastroenteritis. Data kb reviewed: vital signs, nurses notes. Historians other than the Patient: Spouse/Significant Other: . Counseling: I had a detailed discussion with the patient and/or guardian regarding the historical points, exam findings, and any diagnostic results supporting the discharge/admit diagnosis, lab results, radiology results, the need for outpatient follow up, a family practitioner, to return to the emergency department if symptoms worsen or persist or if there are any questions or concerns that arise at home. 18:45 Special discussion: I have referred the patient to see his PCP for further evaluation kb of high blood pressure. ED course: Pt feeling better after treatment. Diagnostic results reviewed with patient. . 02/10 15:40 Order name: CBC with Diff; Complete Time: 18:41 kb 02/10 15:40 Order name: CMP; Complete Time: 18:41 kb 02/10 15:40 Order name: Lipase; Complete Time: 18:41 kb 02/10 15:40 Order name: Urinalysis w/ reflexes; Complete Time: 18:41 kb 02/10 15:47 Order name: Glucose, Ancillary Testing; Complete Time: 15:58 EDMS 02/10 15:40 Order name: CT Abd/Pelvis - IV Contrast Only; Complete Time: 18:41 kb 02/10 15:40 Order name: IV Saline Lock; Complete Time: 18:12 kb 02/10 15:40 Order name: Labs collected and sent; Complete Time: 18:12 kb Administered Medications: 18:19 Drug: Ondansetron IVP 4 mg IVP once; over 2 minutes Route: IVP; Site: left antecubital; ld1 19:18 Follow up: Response: No adverse reaction bm8 18:19 Drug: NS 0.9% IV 1000 ml IV at 1 bolus Per protocol; to be given as a bolus over 60 ld1 minutes Route: IV; Rate: 1 bolus; Site: left antecubital; 19:18 Follow up: Response: No adverse reaction; IV Status: Completed infusion bm8 Point of Care Testing: Blood Glucose: 15:36 Blood Glucose: 103 mg/dL; cm10 Ranges: Critical Glucose Levels:Adult <50 mg/dl or >400 mg/dl <40 mg/dl or >180 mg/dl Disposition Summary: 02/10/25 18:46 Discharge Ordered Notes: Location: Home kb Condition: Stable kb Diagnosis - Nausea with vomiting, unspecified kb - Diarrhea, unspecified kb Followup: kb - With: Private Physician - When: 2 - 3 days - Reason: Recheck today's complaints, Continuance of care, Re-evaluation by your physician Followup: kb - With: Emergency Department - When: As needed - Reason: Worsening of condition Discharge Instructions: - Discharge Summary Sheet kb - Food Choices to Help Relieve Diarrhea, Adult kb - Nausea and Vomiting, Adult, [id number] kb - Diarrhea, Adult, [id number] kb Forms: - Medication Reconciliation Form kb - Antibiotic Education kb - Prescription Opioid Use kb - Patient Portal Instructions kb - Leadership Thank You Letter kb Prescriptions: - ondansetron 4 mg Oral Tablet,disintegrating - take 1 tablet ORAL route every 6 hours As needed as needed for nausea and kb vomiting; 12 tablet; Refills: 0, Product Selection Permitted Signatures: Dispatcher [employer] Magali Walter FNP-C FNP-Ckb Sims, Lauren, RN RN ld1 Gtia Solis RN RN cm10 Jonathan Stanley RN bm8
--- NOTE | 2025-02-10 18:46 | ER ---
Nurse's Notes [facility] Name: Katelin Curtis Age: 74 yrs Sex: Female : 1950 Arrival Date: 02/10/2025 Time: 14:41 Bed 19 Private MD: Diagnosis: Nausea with vomiting, unspecified;Diarrhea, unspecified Presentation: 02/10 15:37 Chief complaint: Patient states: Vomiting and diarrhea onset Sunday. pt reports that cm10 she just feels weak. Coronavirus screen: Client denies travel out of the [place] in the last 14 days. Ebola Screen: Patient denies travel to an Ebola-affected area in the 21 days before illness onset. Initial Sepsis Screen: Does the patient meet any 2 criteria? No. Patient's initial sepsis screen is negative. Does the patient have a suspected source of infection? No. Patient's initial sepsis screen is negative. Risk Assessment: Do you want to hurt yourself or someone else? Patient reports no desire to harm self or others. Onset of symptoms was February 07, 2025. 15:37 Method Of Arrival: Ambulatory cm10 15:37 Acuity: RAYMOND 3 cm10 Triage Assessment: 15:37 General: Appears in no apparent distress. comfortable, Behavior is calm, cooperative. cm10 Pain: Denies pain. Neuro: No deficits noted. Level of Consciousness is awake, alert, obeys commands, Oriented to person, place, time, situation, Appropriate for age. Respiratory: No deficits noted. Airway is patent Respiratory effort is even, unlabored, Respiratory pattern is regular, symmetrical. Historical: - Allergies: 15:37 No Known Allergies; cm10 - PMHx: 15:37 Diabetes mellitus; Hypertensive disorder; Hypercholesterolemia; cm10 - PSHx: 15:37 None; cm10 - Immunization history:: Adult Immunizations up to date. - Infectious Disease History:: Denies. - Social history:: Smoking status: Patient denies any tobacco usage or history of. Screenin:20 [facility] ED Fall Risk Assessment (Adult) History of falling in the last 3 months, ld1 including since admission No falls in past 3 months (0 pts) Confusion or Disorientation No (0 pts) Intoxicated or Sedated No (0 pts) Impaired Gait No (0 pts) Mobility Assist Device Used No (0 pt) Altered Elimination No (0 pt) Score/Fall Risk Level 0 - 2 = Low Risk Oriented to surroundings, Hourly rounding (assess needs \T\ fall precautionary measures) done. [facility] ED Fall Risk Assessment (Adult) History of falling in the last 3 months, including since admission. Abuse screen: Denies threats or abuse. Denies injuries from another. Nutritional screening: No deficits noted. Tuberculosis screening: No symptoms or risk factors identified. Assessment: 18:20 General: Appears in no apparent distress. comfortable, Behavior is calm, cooperative, ld1 appropriate for age. Pain: Denies pain. Neuro: Level of Consciousness is awake, alert, obeys commands, Oriented to person, place, time, situation. Cardiovascular: Capillary refill < 3 seconds Patient's skin is warm and dry. Rhythm is sinus rhythm. Respiratory: Airway is patent Respiratory effort is even, unlabored. GI: Abdomen is round non-distended, Reports nausea, vomiting. : No signs and/or symptoms were reported regarding the genitourinary system. EENT: No signs and/or symptoms were reported regarding the EENT system. Derm: No signs and/or symptoms reported regarding the dermatologic system. Musculoskeletal: No signs and/or symptoms reported regarding the musculoskeletal system. 19:18 Reassessment: Patient appears in no apparent distress at this time. Patient and/or bm8 family updated on plan of care and expected duration. Pain level reassessed. Patient is alert, oriented x 3, equal unlabored respirations, skin warm/dry/pink. Patient denies pain at this time. Patient states feeling better. Patient states symptoms have improved. Vital Signs: 15:36 BP 160 / 71; Pulse 89; Resp 15; Temp 97.6(O); Pulse Ox 99% on R/A; Weight 81.65 kg; cm10 Height 5 ft. 2 in. ; Pain 0/10; 18:20 BP 154 / 64; Pulse 78; Resp 18; Temp 98.2(O); Pulse Ox 100% on R/A; ld1 19:18 BP 154 / 81; Pulse 81; Resp 18; Temp 98.2; Pulse Ox 100% ; Pain 0/10; bm8 15:36 Body Mass Index 32.92 (81.65 kg, 157.48 cm) cm10 15:36 Pain Scale: Adult cm10 19:18 Pain Scale: Adult bm8 Ryan Coma Score: 19:18 Eye Response: spontaneous(4). Motor Response: obeys commands(6). Verbal Response: bm8 oriented(5). Total: 15. ED Course: 14:49 Patient arrived in ED. im 15:34 Magali Nava[facility] kb 15:34 Liban Franklin MD is Attending Physician. kb 15:37 Arm band placed on left wrist. Patient placed in waiting room. cm10 15:38 Triage completed. cm10 17:50 CT Abd/Pelvis - IV Contrast Only In Process Unspecified. EDMS 18:10 Josephine Padron, CHRISTEN is Primary Nurse. ld1 18:12 Urinalysis w/ reflexes Sent. ld1 18:20 Patient has correct armband on for positive identification. Placed in gown. Bed in low ld1 position. Call light in reach. Side rails up X2. school bus monitor on. Pulse ox on. NIBP on. Door closed. Noise minimized. Warm blanket given. 18:20 No provider procedures requiring assistance completed. Inserted saline lock: 22 gauge ld1 in left antecubital area, using aseptic technique. Blood collected. Flushed with 10 mL NS. 19:18 Provided Education on: post er care. bm8 19:18 IV discontinued, intact, bleeding controlled, No redness/swelling at site. Pressure bm8 dressing applied. Administered Medications: 18:19 Drug: Ondansetron IVP 4 mg IVP once; over 2 minutes Route: IVP; Site: left antecubital; ld1 19:18 Follow up: Response: No adverse reaction bm8 18:19 Drug: NS 0.9% IV 1000 ml IV at 1 bolus Per protocol; to be given as a bolus over 60 ld1 minutes Route: IV; Rate: 1 bolus; Site: left antecubital; 19:18 Follow up: Response: No adverse reaction; IV Status: Completed infusion bm8 Medication: 18:20 VIS not applicable for this client. ld1 Point of Care Testing: Blood Glucose: 15:36 Blood Glucose: 103 mg/dL; cm10 Ranges: Outcome: 18:46 Discharge ordered by . kb 19:18 Discharged to home ambulatory, bm8 19:18 Condition: stable 19:18 Discharge instructions given to patient, family, Instructed on discharge instructions, follow up and referral plans. Demonstrated understanding of instructions, follow-up care, Prescriptions given X 1, 19:20 Patient left the ED. bm8 Signatures: Dispatcher [employer] EDMagali Sanchez, SUSAN BUCIO-Josephine Montejo, RN RN ld1 Nilsa Scott Clarissa, RN RN cm10 Jonathan Stanley RN RN bm8
[2025-02-10 19:29] VITALS: TEMP 98.2; O2SAT 100
[2025-02-10 19:31] VITALS: BP 154/81
== END 2025-02-10 19:20 | disposition home or self-care (01) ==
LOC: ER 14:41
DX: R11.2 Nausea with vomiting, unspecified (principal); R19.7 Diarrhea, unspecified; R53.1 Weakness
CPT/HCPCS: 96361; 85025; 36415; 82565; 82947; 81003; 83690; 80053; 74177; 96374; 99285; Q9967; J2405; J7030